=== PATIENT | female | born 1955 | race Caucasian/White ===

== ENCOUNTER 2017-01-02 07:38 | Day surgery (SDC) | payer OTHER ==
[~2017-01-02 07:38] MED LIST: Buffered Lidocaine 1% SYR 3ML* 3 ML/SYR SYRINGE INTRADERM ONE
[2017-01-02] MEDS ORDERED: fentaNYL* 50 MCG/ML 2 ML VIAL (100 MCG VIAL) ONE (09:18)
[2017-01-02] MEDS ORDERED: Midazolam* 1 MG/ML 5 ML VIAL (5 MG) ONE (09:19)
[2017-01-02] MEDS ORDERED: Lidocain 1% EPI 1:100,000 * 30 ML MDV ONE (09:32)
[2017-01-02] MEDS ORDERED: Propofol* 10 MG/ML 20 ML BTL IV PUSH ONE (09:53)
[2017-01-02] MEDS ORDERED: BSS OPTH.SOL* BTL ONE (10:04)
[2017-01-02] MEDS ORDERED: Ondansetron INJ* 2 MG/ML VIAL IV PRN (10:10)
[2017-01-02 12:03] VITALS: BP 114/74
== END 2017-01-02 12:17 | disposition home or self-care (01) ==
LOC: OR 07:38
PROVIDERS: ATTEND Plastic Surgery
DX: C44.311 Basal cell carcinoma of skin of nose (principal); I10 Essential (primary) hypertension; F17.210 Nicotine dependence, cigarettes, uncomplicated
CPT/HCPCS: 88305; 88331; 88332; A9270-GY; J2250; J2704; J3010

== ENCOUNTER 2018-02-01 11:54 | Emergency (ER) | payer OTHER ==
[2018-02-01] MEDS ORDERED: Ondansetron INJ* 2 MG/ML VIAL IV ONE (12:03)
[2018-02-01] MEDS ORDERED: Ketorolac INJ* 30 MG/ML 1 ML VIAL IV ONE (12:03)
[2018-02-01] MEDS ORDERED: NS 0.9% 1000 ML* 1,000 ML IV ONE (12:03)
[2018-02-01 13:03] LABS: ABS Basophils 0 10^3/ul (0-0.2); ABS Eosinophils 0.1 10^3/ul (0-0.6); ABS Lymphocytes 0.9 10^3/ul (1.0-4.8); ABS Monocytes 0.4 10^3/ul (0-0.8); ABS Neutrophils 3.8 10^3/ul (1.5-7.7); ABS Nucleated RBC 0 10^3/ul; Eosinophil % 2.7 % (0-6); Hematocrit 37 % (35-47); Hemoglobin 12.6 g/dl (12.0-16.0); Lymphocyte % 16.6 % (25-47); Mean Corpuscular HGB Conc 34 g/dl (31-36); Mean Corpuscular Hemoglobin 31 pg (27-31); Mean Corpuscular Volume 92 fL (80-97); Mean Platelet Volume 7.2 um3 (7.4-10.4); Nucleated Red Blood Cells % 0; Platelet Count 191 10^3/ul (150-450); Red Blood Count 4.07 10^6/ul (4.0-5.4); Red Cell Distribution Width 14 % (10.5-15); White Blood Count 5.3 10^3/ul (3.5-10.8)
[2018-02-01 13:25] LABS: EGFR Non-African American 68.9 (>60)
[2018-02-01] MEDS ORDERED: Iohexol 300* (CONTRAST) 10 ML SDV IV ONE (13:50)
--- NOTE | 2018-02-01 14:56 | RAD ---
CLINICAL HISTORY: Abdominal pain COMPARISON: None TECHNIQUE: Multiple contiguous axial CT scans were obtained of the abdomen and pelvis after the administration of intravenous contrast. Coronal and sagittal multiplanar reformations are submitted for review. Oral contrast was administered. Delayed images were obtained through the abdomen and pelvis. FINDINGS: LUNG BASES: The lung bases are clear. LIVER: The liver is diffusely low in attenuation compared to the spleen. There are no focal hepatic parenchymal masses. BILE DUCTS: There is no intrahepatic or extrahepatic biliary dilatation. GALLBLADDER: The gallbladder is normal, without pericholecystic inflammatory change. PANCREAS: The pancreas is normal, without mass or ductal dilatation. SPLEEN: Normal in size and appearance. UPPER GI TRACT: Evaluation of the gastrointestinal tract is limited by incomplete gastric distention. The upper GI tract is unremarkable. SMALL BOWEL AND MESENTERY: The small bowel is normal in contour, course, and caliber. There is no obstruction or dilatation. COLON: There are multiple diverticula of the sigmoid colon. There is no pericolonic inflammatory change. Evaluation of the rectum and sigmoid distal colon is limited by streak artifact from bilateral hip prostheses. ADRENALS: Normal bilaterally. KIDNEYS: The kidneys are normal in shape, size, contour, and axis. There is no hydronephrosis or nephrolithiasis. BLADDER: Evaluation of the distal ureters and bladder is limited by streak artifact from bilateral hip prostheses. PELVIC ORGANS: Evaluation of the pelvic organs is limited by streak artifact from bilateral hip prostheses. AORTA: The aorta is normal. IVC: Unremarkable LYMPH NODES: There is no lymphadenopathy by size criteria. ABDOMINAL WALL: There is a small fat-containing umbilical hernia. BONES AND SOFT TISSUES: Degenerative changes are noted of the spine. The patient is status post bilateral hip arthroplasty. OTHER: None IMPRESSION: 1. DIVERTICULOSIS. 2. FATTY INFILTRATION OF THE LIVER. 3. EVALUATION OF THE PELVIS IS LIMITED BY STREAK ARTIFACT FROM BILATERAL HIP PROSTHESES.
[2018-02-01 15:26] VITALS: BP 131/75
--- NOTE | 2018-02-02 08:07 | ED ---
Brian Burroughs Angela, scribed for Kenny Jacobs MD on 02/01/18 at 1235 . Abdominal Pain/Female - HPI Summary HPI Summary: This pt is a 63 y/o female presenting to [facility] c/o left sided abdominal pain, worse today. Pt additionally reports diaphoresis, nausea, vomiting, and back pain. Pt rates her pain 10/10 in severity. She states she has been having diarrhea "like problems" since last summer 2016. Pt notes her diarrhea stopped last week while she was in [place]. PMHx includes HTN, IBS, GERD. - History of Current Complaint Chief Complaint: EDNauseaVomitDiarrh Stated Complaint: ILLNESS Time Seen by Provider: 02/01/18 12:00 Hx Obtained From: Patient Onset/Duration: Lasting Days, Still Present Timing: Days Severity Currently: Severe Pain Intensity: 10 Pain Scale Used: 0-10 Numeric Location: Other - left sided abd pain Radiates: No Aggravating Factor(s): Nothing Alleviating Factor(s): Nothing Associated Signs and Symptoms: Positive: Diaphoresis, Back Pain, Nausea, Vomiting. Negative: Fever, Diarrhea Allergies/Adverse Reactions: Allergies Allergy/AdvReac Type Severity Reaction Status Date / Time No Known Allergies Allergy Verified 01/02/17 08:24 Home Medications: Home Medications BuPROPion XL* [Bupropion XL*] 300 mg PO DAILY 02/01/18 [History Confirmed ] PMH/Surg Hx/FS Hx/Imm Hx Endocrine/Hematology History: Denies: Hx Diabetes, Hx Thyroid Disease Cardiovascular History: Reports: Hx Hypertension Denies: Hx Pacemaker/ICD Respiratory History: Reports: Hx Sleep Apnea Denies: Hx Asthma, Hx Chronic Obstructive Pulmonary Disease (COPD) GI History: Reports: Hx Gastroesophageal Reflux Disease - omeprazole very rare, Hx Irritable Bowel - comes and goes Denies: Hx Ulcer History: Denies: Hx Renal Disease Musculoskeletal History: Reports: Hx Arthritis Sensory History: Reports: Hx Contacts or Glasses - glasses Denies: Hx Hearing Aid Opthamlomology History: Reports: Hx Contacts or Glasses - glasses Neurological History: Reports: Hx Headaches Psychiatric History: Reports: Hx Anxiety, Hx Depression Denies: Hx Eating Disorder, Hx Panic Disorder, Hx of Violent Episodes Against Others - Cancer History Hx Chemotherapy: No Hx Radiation Therapy: No - Surgical History Surgery Procedure, Year, and Place: RIGHT HIP REPLACEMENT 2012, 2 C-SECTIONS 1997, 2000, MULTIPLE SURGERIES FOR INFERTILITY, WISDOM TEETH EXTRACTION, CYSTS REMOVED FROM BEHIND EARS-. 01/26/2016 LEFT HIP REPLACEMENTS, hysteroscopy, laparoscopy Hx Anesthesia Reactions: No Infectious Disease History: No Infectious Disease History: Reports: Hx Shingles Denies: Hx Clostridium Difficile, Hx Hepatitis, Hx Human Immunodeficiency Virus (HIV), Hx of Known/Suspected MRSA, Hx Tuberculosis, Hx Known/Suspected VRE , Hx Known/Suspected VRSA, History Other Infectious Disease, Traveled Outside the [place] in Last 30 Days - Family History Known Family History: Negative: Cardiac Disease Family History: Father: skin CA. grandfather: stroke - Social History Alcohol Use: Daily Alcohol Amount: 2 DRINKS/DAY Substance Use Type: Reports: Marijuana Substance Use Comment - Amount & Last Used: occassionally Smoking Status (MU): Light Every Day Tobacco Smoker Type: Cigarettes Amount Used/How Often: 5-6 CIG/DAY Length of Time of Smoking/Using Tobacco: 40+ years Review of Systems Positive: Skin Diaphoresis. Negative: Fever, Chills ENT: Negative Cardiovascular: Negative Positive: Abdominal Pain, Vomiting, Nausea. Negative: Diarrhea Musculoskeletal: Other - back pain Skin: Negative Neurological: Negative All Other Systems Reviewed And Are Negative: Yes Physical Exam - Summary Physical Exam Summary: VITAL SIGNS: Reviewed. GENERAL: Patient is a well-developed and nourished female who is lying comfortable in the stretcher. Patient is not in any acute respiratory distress. HEAD AND FACE: Normocephalic and atraumatic. EYES: PERRLA, EOMI x 2, No injected conjunctiva. EARS: Hearing grossly intact. Ear canals and tympanic membranes are WNL. MOUTH: Oropharynx within normal limits. NECK: Supple, trachea is midline, no adenopathy, no JVD. CHEST: Symmetric, no tenderness at palpation LUNGS: Clear to auscultation bilaterally. No wheezing or crackles. CVS: RRR, S1 and S2 present, no murmurs or gallops appreciated. ABDOMEN: Soft. Left upper quadrant and left lower quadrant tenderness. No signs of distention. Positive bowel sounds. No rebound no guarding, and no masses palpated. No abdominal bruit or pulsations. EXTREMITIES: FROM in all major joints, no edema, no cyanosis or clubbing. NEURO: Alert and oriented x 3. No acute neurological deficits. Speech is normal. SKIN: Dry and warm Triage Information Reviewed: Yes Vital Signs On Initial Exam: Initial Vitals Temp Pulse Resp BP Pulse Ox 96.6 F 59 18 146/77 100 02/01/18 12:05 02/01/18 12:05 02/01/18 12:05 02/01/18 12:05 02/01/18 12:05 Vital Signs Reviewed: Yes Diagnostics - Vital Signs Vital Signs Temp Pulse Resp BP Pulse Ox 02/01/18 12:05 96.6 F 59 18 146/77 100 - Laboratory Result Diagrams: 02/01/18 12:48 02/01/18 12:48 Lab Statement: Any lab studies that have been ordered have been reviewed, and results considered in the medical decision making process. - CT Abdomen/Pelvis CT CT Interpretation: No Acute Changes - IMPRESSION: 1. Diverticulosis. 2. Fatty infiltration of the liver. 3. Evaluation of the pelvis is limited by streak artifact from bilateral hip prostheses. Dr. Jacobs has reviewed this radiology report. CT Interpretation Completed By: Radiologist - EKG 12:16 Cardiac Rate: Bradycardia EKG Rhythm: Sinus Bradycardia - at 52 bpm EKG Interpretation: No ST elevations. Re-Evaluation - Re-Evaluation First Eval Re-Evaluation Time: 15:00 Comment: I reviewed the lab and CT results with the pt. Pt will be discharged home. Abdominal Pain Fem Course/Dx - Course Course Of Treatment: This pt is a 63 y/o female presenting to [facility] c/o left sided abdominal pain, worse today. Pt additionally reports diaphoresis, nausea, vomiting, and back pain. Pt rates her pain 10/10 in severity. She states she has been having diarrhea "like problems" since last summer 2016. Pt notes her diarrhea stopped last week while she was in [place]. PMHx includes HTN, IBS , GERD. Test results without any significant abnormalities except for glucose of 111. Abdomen/Pelvis CT shows 1. Diverticulosis. 2. Fatty infiltration of the liver. 3. Evaluation of the pelvis is limited by streak artifact from bilateral hip prostheses. In the ED course the pt was given IV fluids, Toradol for the pain and Zofran for the nausea and vomiting. After these medications, the pts pain resolved. She is eating and drinking without any nausea or vomiting. Therefore she will be discharged to home with follow up from her PCP. I discussed all the findings and test results with the patient. All questions were answered to patient satisfaction. There were no further complaints or concerns. Pt was given prescriptions for naproxen and Zofran. She is instructed to return to the ED for any worsening or new symptoms. Pt is hemodynamically stable, alert and oriented x3. - Diagnoses Provider Diagnoses: Diffuse abdominal pain, Nausea and vomiting Discharge - Sign-Out/Discharge Documenting (check all that apply): Discharge - discharge to home - Discharge Plan Condition: Stable Disposition: HOME Prescriptions: Naproxen 500 mg PO BID PRN #20 tablet PRN Reason: Pain Ondansetron TAB* [Zofran 4 MG Tab*] 4 mg PO Q6H PRN #10 tab PRN Reason: Nausea Patient Education Materials: Acute Nausea and Vomiting (ED), Abdominal Pain (ED ) Referrals: Salud Sapp MD [Primary Care Provider] - 3 Days Additional Instructions: Please follow up with your primary care provider. RETURN TO THE ED FOR ANY NEW OR WORSENING SYMPTOMS. The documentation as recorded by the Brian ellis Angela accurately reflects the service I personally performed and the decisions made by me, Kenny Jacobs MD.
== END 2018-02-01 15:26 | disposition home or self-care (01) ==
LOC: ED 11:54
DX: R10.84 Generalized abdominal pain (principal); R11.2 Nausea with vomiting, unspecified; R61 Generalized hyperhidrosis; M54.9 Dorsalgia, unspecified; K57.30 Diverticulosis of large intestine without perforation or abscess without bleeding; K76.0 Fatty (change of) liver, not elsewhere classified; R00.1 Bradycardia, unspecified; I10 Essential (primary) hypertension; K21.9 Gastro-esophageal reflux disease without esophagitis; R51 Headache; F41.9 Anxiety disorder, unspecified; F32.9 Major depressive disorder, single episode, unspecified; Z96.642 Presence of left artificial hip joint; F17.210 Nicotine dependence, cigarettes, uncomplicated
CPT/HCPCS: 36415; 74177; 80053; 82550; 83690; 83735; 83880; 85025; 86140; 93005; 96361; 96374; 96375; 99284; J1885; J2405; Q9967

== ENCOUNTER 2019-04-03 14:38 | Observation (INO) | payer OTHER ==
--- OUTSIDE RECORDS SUMMARY | 2019-04-03 14:54 | XMS REPORT | Continuity of Care Document ---
:1955 External Reference #:[id number] Author Name Gissell Askew Care Team Providers Name Role Phone Salud Sapp MD Primary Care Physician Unavailable Payers Date Identification Numbers Payment Provider Subscriber Effective: 2015 Policy Number: [id number] [employer] peng Clouder PayID: [id number] [address] [place] [address] Effective: 2015 Policy Number: [id number] [employer] Timoteo Villanueva Expires: 2015 PayID: [id number] [address] [place] [address] Effective: 2014 Policy Number: [id number] GEORGE Cailin Villanueva Expires: 2015 PayID: [id number] [address] [address] [place] [address] Effective: 2013 Policy Number: [id number] [facility] [place] Expires: 2014 [address] [place] [address] Effective: 2012 Policy Number: [id number] [employer] Timoteo Villanueva Expires: 2013 Group Number: [id number] [address] Group Name: [place] [address] PayID: [id number] Problems Active Problems Provider Date Essential hypertension Meri Golden NBrian. Onset: 09/03/2015 Anxiety state Nelsy Pérez M.D., FACP Onset: 09/28/2010 Depressive disorder Nelsy Pérez M.D., FACP Onset: 09/28/2010 Chronic fatigue syndrome Nelsy Pérez M.D., FACP Onset: 09/28/2010 Temporomandibular joint disorder Nelsy Pérez M.D., FACP Onset: 10/12/2010 Gastroesophageal reflux disease Meri Golden N.P. Onset: 06/24/2012 Obstructive sleep apnea of adult Lee Ann Weeks DNP, GURPREET, Onset: 10/16/2014 [facility] Abnormal results function studies of Jazmine Abreu MD Onset: 11/17/2015 central nervous system Postconcussion syndrome Jazmine Abreu MD Onset: 11/28/2016 Headache Jazmine Abreu MD Onset: 09/25/2017 Collagenous colitis Meri Golden N.P. Onset: 02/06/2019 Dizziness and giddiness Rajat Rojas M.D. Onset: 02/21/2019 Family History Date Family Member(s) Observation Comments Father Benign Prostatic Hypertrophy Mild Stroke (85) Mother Hypertension First Brother Mitral Valve Repair (55) Social History Type Date Description Comments Sex Unknown Marital Status Occupation Artist ETOH Use Currently consumes 3 beers per day alcohol Tobacco Use Start: Unknown Patient is a current 2 - 3 cigarettes per smoker, smokes every day day Recreational Drug Use Current Drug User Smokes marijuana 3 - 4 times weekly Smoking Status Reviewed: 03/17/19 Patient is a current 2 - 3 cigarettes per smoker, smokes every day day Exercise Type/Frequency Does not exercise Allergies, Adverse Reactions, Alerts Active Allergies Reaction Severity Comments Date No Known Drug Allergy 07/07/2010 Medications Active Medications SIG Qnty Indications Ordering Date Provider Tizanidine HCL 1 by mouth 30caps M54.2 Salud 03/17/2019 2mg Capsules every 8 h. february Emeka Sapp increase to 1-2 by mouth every 8h after a few days if needed Wellbutrin XL 300MG TB24 Take One 30units R10.12 Meri Golden, 05/19/2018 Tablet By N.P. Mouth Once Daily Levocetirizine 1 by mouth 30tabs J30.9 Salud 04/12/2018 Dihydrochloride once daily as Emeka Sapp 5mg Tablets needed Fluoxetine HCL Take One 30tabs F33.9 Meri Chico, 03/11/2018 60mg Tablets Tablet By N.P. Mouth Once Daily Nasonex instill 1 17units Salud 01/10/2016 50mcg/Act Suspension spray into Emeka Sapp each nostril once daily as needed Flovent HFA 2 puffs twice 12gm Salud 01/10/2016 110mcg/Act Aerosol daily as Kasey SappD. needed Proair HFA inhale 2 puffs 8.500gm 995.3 Salud 03/30/2015 108(90Base) mcg/Act by mouth every Emeka Sapp Aerosol 4 hours as needed Alprazolam dissolve 1 30tabs F32.9 Meri [place], 04/08/2014 0.25mg Tablets Dispers tablet on N.P. tongue upto 3 times a day as needed for anxiety max of 3 per day Hydrochlorothiazide Take One 90tabs Meri Golden, 04/11/2013 25mg Tablets Tablet By N.P. Mouth Once Daily Omeprazole take two 90caps Meri Golden, 06/15/[address] capsules by N.P. mouth once daily Budesonide take 3 daily Unknown 3mg Caps DR Part for two weeks, then 2 daily for i week, then 1 daily for one week Magnesium 27 1 by mouth per Unknown 500(27Mg) mg Tablets day History Medications Wellbutrin XL 1 by mouth 30tabs R10.12 Meri Golden, 09/11/2017 - 300mg every day N.P. 05/19/2018 Tablets ER 24HR Propranolol HCL 1 by mouth 120tabs Jazmine Abreu MD 04/11/2017 - 20mg twice a day x 1 09/11/2017 Tablets week then increase to 2 po qam and 1 po qpm x 1 week then increase to 2 po q am and 2 po qpm Wellbutrin XL 1 by mouth 30tabs R10.12 Meri Golden, 10/20/2016 - 150mg every day N.P. 09/11/2017 Tablets ER 24HR Wellbutrin XL 1 by mouth 30tabs R10.12 Meri Golden, 09/06/2016 - 300mg every day N.P. 10/20/2016 Tablets ER 24HR Wellbutrin XL 1 by mouth 14tabs Meri Chico, 08/31/2016 - 150mg every day N.P. 09/14/2016 Tablets ER 24HR Amoxicillin/Clavulanat one tablet by 20tabs J01.00 Meri [place], 2015 - e Potassium mouth twice N.P. 06/09/2016 875-125mg daily for 10 Tablets days Cephalexin 1 by mouth 21caps L08.9 Meri Golden, 03/31/2016 - 500mg Capsules three times a N.P. 04/07/2016 day for 7 days Azithromycin 2 tabs by mouth 6tabs J20.9 Yony Simpson NP 2016 - 250mg every day x1 01/26/2016 Tablets day, 1 tab by mouth every day x 4 days Vicodin take 1 by mouth 30tabs M25.552 Meri Golden, 08/27/2015 - 5-300mg Tablets every 6 hours N.P. 12/31/2015 as needed Cyclobenzaprine HCL one by mouth hs 30tabs M25.552 Meri Golden, 2014 - 10mg prn for muscle N.P. 09/10/2015 Tablets spasms Ivermectin 5 tablets by 10tabs 133.0 Meri Golden, 06/01/2015 - 3mg Tablets mouth, repeat N.P. 06/29/2015 in 2 weeks Cetirizine HCL 1 tab po at bed 30tabs 995.3 Sabas Ambriz NP 03/30/2015 - 5mg time 06/01/2015 Tablets Wellbutrin XL 1 by mouth 30tabs Meri Golden, 04/08/2014 - 300mg every day N.P. 04/21/2016 Tablets ER 24HR Vicodin 1-2 by mouth 30tabs Meri Golden, 06/28/2012 - 5-500mg Tablets every 4-6 hours N.P. 10/15/2012 and needed for pain Cephalexin one three times 21tabs 706.2 Nelsybob Pérez, 03/07/2012 - 500mg Tablets daily for 7 M.D., FACP 03/14/2012 days Ketoconazole apply once 30gm 112.3 Nelsy Elisa, 06/01/2011 - 2% Cream daily to M.D., FACP 06/24/2012 affected area Physical Thaerapy Right shoulder, Nelsy Pérez, 03/17/2011 - right hip, and M.D., FACP 06/01/2011 back pain Nasonex apply 2 sprays 17units Sabas Ambriz NP 02/03/2011 - 50mcg/Act to each nostril 01/10/2016 Suspension twice daily Clonazepam 1 tablet twice 60tabs 300.00 Nelsy Pérez, 01/18/2011 - 0.5mg Tablets a day as needed M.D., FACP 06/24/2012 Valium 1 by mouth at 30tabs Meri Golden, 11/16/2010 - 5mg Tablets bedtime N.P. 06/01/2015 Erythomycin Ophthalmic apply to 15gm Nelsy Pérez, 11/16/2010 - affected eye M.D., FACP 02/24/2011 Oint twice daily Ibuprofen 1 po tid as 90tabs Meri Chico, 09/16/2010 - 800mg Tablets needed pain N.P. 05/30/2016 Aygestin as directed 50tabs Nelsy Pérez, 09/13/2010 - 5mg Tablets M.D., FACP 09/16/2010 Tobrex 1 gtt every 4 5ml Nelsy Pérez, 08/31/2010 - 0.3% Solution hours for 7 M.D., FACP 09/07/2010 days Folate 40 MG once daily Unknown - 02/20/2019 Citalopram take one and 45tabs Meri Golden, - Hydrobromide one-half tablet N.P. 03/11/2018 40mg Tablets by mouth every day Magnesium take one tablet Unknown - 500mg Tablets by mouth daily 09/25/2017 Meclizine HCL 1 tab by mouth Unknown - 12.5mg every 8 hours 12/31/2015 Tablets as needed Ondansetron as needed Joi Schuster, - 4mg Tablets SHARI 12/31/2015 Dispers Oxycodone-Acetaminophe Joi Schuster, - conrad MCCARTHY 12/31/2015 5-325mg Tablets Wellbutrin XL Take 1 Tablet 30tabs Meri Varn, - 150mg By Mouth Once N.P. 04/08/2014 Tablets ER 24HR Daily Xanax one by mouth up 30tabs Meri Varn, - 0.25mg Tablets to three times N.P. 07/27/2014 daily as needed for anxiety Progesterone 1 Daily For 14 Unknown - Days A Month 02/24/2011 For 2 Months Xanax one po up to 90tabs Nelsy Elisa, - 0.25mg Tablets tid as needed M.D., FACP 06/24/2012 for anxiety Citalopram 1 1/2 tablets 30tabs Nelsy Elisa, - Hydrobromide daily M.D., FACP 07/08/2010 20mg Tablets HCTZ 1 tablet daily 30units Nelsy Elisa, - 25mg. M.D., FACP 04/11/2013 Medications Administered in Office Medication SIG Qnty Indications Ordering Provider Date Depomedrol 40MG Torrey Tadeo M.D. 01/03/2010 Injection Depomedrol 20MG Torrey Tadeo M.D. 01/03/2010 Injection Immunizations CPT Code Status Date Vaccine Lot # [id number] Given 09/15/2009 Tdap - Tetanus/Diptheria/Acellular Pertussis Vital Signs Date Vital Result Comment 03/17/2019 12:03pm Height 63 inches 5'3" Weight 157.00 lb Heart Rate 84 /min BP Systolic Sitting 152 mmHg 154/100 BP Diastolic Sitting 100 mmHg 154/100 O2 % BldC Oximetry 96 % BMI (Body Mass Index) 27.8 kg/m2 02/21/2019 10:24am Height 63 inches 5'3" Weight 156.00 lb Heart Rate 78 /min BP Systolic 122 mmHg BP Diastolic 80 mmHg BMI (Body Mass Index) 27.6 kg/m2 11/26/2018 1:15pm Height 63 inches 5'3" Weight 151.25 lb Heart Rate 81 /min BP Systolic 124 mmHg BP Diastolic 79 mmHg Body Temperature 97.8 F O2 % BldC Oximetry 97 % BMI (Body Mass Index) 26.8 kg/m2 09/13/2018 1:04pm Height 63 inches 5'3" Weight 155.00 lb Heart Rate 73 /min BP Systolic 132 mmHg BP Diastolic 84 mmHg Body Temperature 97.4 F O2 % BldC Oximetry 98 % BMI (Body Mass Index) 27.5 kg/m2 05/10/2018 11:00am Heart Rate 78 /min BP Systolic 128 mmHg BP Diastolic 80 mmHg Respiratory Rate 16 /min 04/15/2018 1:29pm Weight 158.00 lb Heart Rate 87 /min BP Systolic 138 mmHg BP Diastolic 76 mmHg Body Temperature 98.4 F O2 % BldC Oximetry 98 % 04/12/2018 10:14am Weight 162.00 lb Heart Rate 73 /min BP Systolic 152 mmHg BP Diastolic 91 mmHg Body Temperature 97.4 F O2 % BldC Oximetry 99 % 03/26/2018 2:46pm Height 63 inches 5'3" Weight 162.38 lb Heart Rate 78 /min BP Systolic Sitting 124 mmHg BP Diastolic Sitting 80 mmHg BMI (Body Mass Index) 28.8 kg/m2 03/11/2018 10:18am Weight 159.25 lb Heart Rate 75 /min BP Systolic 128 mmHg BP Diastolic 76 mmHg Body Temperature 98.5 F O2 % BldC Oximetry 98 % 02/11/2018 3:34pm Weight 162.50 lb Heart Rate 86 /min BP Systolic 142 mmHg BP Diastolic 86 mmHg Body Temperature 98.8 F O2 % BldC Oximetry 97 % 09/25/2017 10:54am Height 63 inches 5'3" Weight 158.38 lb Heart Rate 76 /min BP Systolic 118 mmHg BP Diastolic 80 mmHg BMI (Body Mass Index) 28.1 kg/m2 09/11/2017 10:51am Height 63 inches 5'3" Weight 156.00 lb Heart Rate 77 /min BP Systolic Sitting 146 mmHg BP Diastolic Sitting 94 mmHg O2 % BldC Oximetry 97 % BMI (Body Mass Index) 27.6 kg/m2 07/27/2017 10:41am Weight 150.25 lb Heart Rate 70 /min BP Systolic 120 mmHg BP Diastolic 78 mmHg Body Temperature 98.8 F O2 % BldC Oximetry 97 % 06/12/2017 4:58pm Weight 155.75 lb Heart Rate 80 /min BP Systolic 120 mmHg BP Diastolic 72 mmHg Body Temperature 98.1 F O2 % BldC Oximetry 98 % 04/16/2017 1:04pm Weight 158.00 lb Heart Rate 81 /min BP Systolic 120 mmHg BP Diastolic 80 mmHg Body Temperature 98.2 F O2 % BldC Oximetry 98 % 12/05/2016 2:20pm Weight 155.00 lb Heart Rate 76 /min BP Systolic 124 mmHg BP Diastolic 78 mmHg Body Temperature 98.4 F O2 % BldC Oximetry 98 % 11/28/2016 11:42am Height 62.75 inches 5'2.75" Weight 150.00 lb Heart Rate 68 /min BP Systolic Sitting 118 mmHg BP Diastolic Sitting 86 mmHg Respiratory Rate 14 /min BMI (Body Mass Index) 26.8 kg/m2 09/06/2016 10:48am Height 62.75 inches 5'2.75" Weight 155.00 lb Heart Rate 66 /min BP Systolic Sitting 149 mmHg BP Diastolic Sitting 90 mmHg Respiratory Rate 16 /min O2 % BldC Oximetry 99 % BMI (Body Mass Index) 27.7 kg/m2 07/11/2016 1:34pm Weight 158.38 lb Heart Rate 72 /min BP Systolic Sitting 138 mmHg BP Diastolic Sitting 84 mmHg Respiratory Rate 18 /min O2 % BldC Oximetry 96 % 05/30/2016 9:05am Weight 159.00 lb with shoes Heart Rate 95 /min BP Systolic Sitting 168 mmHg BP Diastolic Sitting 110 mmHg Body Temperature 97.9 F O2 % BldC Oximetry 98 % 03/31/2016 11:42am Weight 166.00 lb Heart Rate 94 /min BP Systolic Sitting 142 mmHg BP Diastolic Sitting 82 mmHg Body Temperature 97.6 F O2 % BldC Oximetry 98 % 2016 9:47am Height 62.5 inches 5'2.50" Weight 167.00 lb Heart Rate 70 /min BP Systolic Sitting 128 mmHg BP Diastolic Sitting 84 mmHg Respiratory Rate 14 /min Body Temperature 98.5 F O2 % BldC Oximetry 98 % BMI (Body Mass Index) 30.1 kg/m2 12/31/2015 8:39am Height 62.5 inches 5'2.50" Weight 169.25 lb Heart Rate 73 /min BP Systolic Sitting 118 mmHg BP Diastolic Sitting 74 mmHg Body Temperature 97.8 F Pain Level 1 O2 % BldC Oximetry 98 % BMI (Body Mass Index) 30.5 kg/m2 11/17/2015 10:41am Height 63 inches 5'3" Weight 170.00 lb Heart Rate 80 /min BP Systolic Sitting 144 mmHg BP Diastolic Sitting 76 mmHg Respiratory Rate 16 /min BMI (Body Mass Index) 30.1 kg/m2 09/27/2015 11:55am Weight 172.75 lb Heart Rate 71 /min BP Systolic Sitting 140 mmHg BP Diastolic Sitting 93 mmHg Body Temperature 97.7 F O2 % BldC Oximetry 98 % 09/21/2015 9:34am Height 62.75 inches 5'2.75" Weight 173.00 lb Heart Rate 76 /min BP Systolic Sitting 132 mmHg BP Diastolic Sitting 86 mmHg Respiratory Rate 16 /min BMI (Body Mass Index) 30.9 kg/m2 09/03/2015 10:48am Height 62.75 inches 5'2.75" Weight 169.50 lb Heart Rate 74 /min BP Systolic Sitting 131 mmHg BP Diastolic Sitting 84 mmHg Body Temperature 98.4 F BMI (Body Mass Index) 30.3 kg/m2 08/27/2015 1:28pm Height 63 inches 5'3" Weight 169.00 lb Heart Rate 82 /min BP Systolic Sitting 128 mmHg BP Diastolic Sitting 84 mmHg Respiratory Rate 14 /min Body Temperature 98.0 F O2 % BldC Oximetry 97 % BMI (Body Mass Index) 29.9 kg/m2 06/01/2015 9:07am Height 63 inches 5'3" Weight 170.00 lb Heart Rate 70 /min BP Systolic 137 mmHg BP Diastolic 84 mmHg Body Temperature 96.9 F BMI (Body Mass Index) 30.1 kg/m2 03/30/2015 1:09pm Height 63 inches 5'3" Weight 172.00 lb Heart Rate 73 /min BP Systolic Sitting 132 mmHg BP Diastolic Sitting 90 mmHg Respiratory Rate 18 /min Body Temperature 98.5 F O2 % BldC Oximetry 95 % BMI (Body Mass Index) 30.5 kg/m2 10/16/2014 10:02am Height 63 inches 5'3" Weight 166.38 lb Heart Rate 71 /min BP Systolic Sitting 134 mmHg BP Diastolic Sitting 84 mmHg Respiratory Rate 18 /min Body Temperature 98.0 F O2 % BldC Oximetry 98 % BMI (Body Mass Index) 29.5 kg/m2 Neck Circumference in inches 14.25 10/07/2014 1:27pm Weight 167.00 lb Heart Rate 84 /min BP Systolic Sitting 140 mmHg BP Diastolic Sitting 90 mmHg Body Temperature 98.0 F 08/06/2014 2:43pm Height 63 inches 5'3" Weight 167.00 lb Heart Rate 84 /min BP Systolic Sitting 144 mmHg LA reg cuff BP Diastolic Sitting 94 mmHg LA reg cuff Respiratory Rate 14 /min Body Temperature 99.8 F O2 % BldC Oximetry 97 % BMI (Body Mass Index) 29.6 kg/m2 Neck Circumference in inches 15 07/27/2014 1:47pm Height 63 inches 5'3" Weight 167.00 lb Heart Rate 72 /min BP Systolic Sitting 126 mmHg BP Diastolic Sitting 78 mmHg Body Temperature 97.4 F BMI (Body Mass Index) 29.6 kg/m2 04/08/2014 10:52am Height 63.5 inches 5'3.50" Weight 167.00 lb Heart Rate 82 /min BP Systolic Sitting 138 mmHg BP Diastolic Sitting 100 mmHg BMI (Body Mass Index) 29.1 kg/m2 06/24/2013 2:05pm Weight 161.50 lb Heart Rate 82 /min BP Systolic Sitting 138 mmHg BP Diastolic Sitting 82 mmHg 05/30/2013 1:14pm Weight 158.75 lb Heart Rate 80 /min BP Systolic Sitting 130 mmHg BP Diastolic Sitting 80 mmHg 03/06/2013 1:07pm Weight 159.00 lb Heart Rate 70 /min BP Systolic Sitting 122 mmHg BP Diastolic Sitting 80 mmHg 10/15/2012 10:41am Height 64.5 inches 5'4.50" Weight 156.00 lb Heart Rate 72 /min BP Systolic Sitting 122 mmHg BP Diastolic Sitting 78 mmHg BMI (Body Mass Index) 26.4 kg/m2 06/24/2012 3:16pm Height 64.5 inches 5'4.50" Weight 153.00 lb Heart Rate 68 /min BP Systolic Sitting 138 mmHg BP Diastolic Sitting 84 mmHg BMI (Body Mass Index) 25.9 kg/m2 03/07/2012 10:56am Height 64.5 inches 5'4.50" Weight 152.50 lb Heart Rate 76 /min BP Systolic Sitting 124 mmHg BP Diastolic Sitting 84 mmHg Body Temperature 97.9 F BMI (Body Mass Index) 25.8 kg/m2 10/13/2011 9:58am Height 64.5 inches 5'4.50" Weight 150.75 lb Heart Rate 68 /min BP Systolic Sitting 118 mmHg L BP Diastolic Sitting 72 mmHg L BMI (Body Mass Index) 25.5 kg/m2 09/26/2011 8:55am Height 64.5 inches 5'4.50" Weight 150.00 lb Heart Rate 64 /min BP Systolic Sitting 118 mmHg BP Diastolic Sitting 76 mmHg BMI (Body Mass Index) 25.3 kg/m2 08/01/2011 10:44am Height 64.5 inches 5'4.50" Weight 156.00 lb Heart Rate 64 /min BP Systolic Sitting 116 mmHg l BP Diastolic Sitting 80 mmHg l BMI (Body Mass Index) 26.4 kg/m2 06/15/2011 1:15pm Height 64.5 inches 5'4.50" Weight 159.00 lb Heart Rate 78 /min BP Systolic Sitting 142 mmHg BP Diastolic Sitting 90 mmHg O2 % BldC Oximetry 98 % BMI (Body Mass Index) 26.9 kg/m2 06/01/2011 10:34am Height 64.5 inches 5'4.50" Weight 159.00 lb Heart Rate 60 /min BP Systolic Sitting 124 mmHg BP Diastolic Sitting 78 mmHg BMI (Body Mass Index) 26.9 kg/m2 03/17/2011 8:35am Height 64.5 inches 5'4.50" Weight 161.00 lb Heart Rate 68 /min BP Systolic Sitting 126 mmHg L BP Diastolic Sitting 78 mmHg L BMI (Body Mass Index) 27.2 kg/m2 02/24/2011 8:33am Weight 160.00 lb Heart Rate 62 /min BP Systolic Sitting 124 mmHg BP Diastolic Sitting 88 mmHg 01/18/2011 11:46am Heart Rate 72 /min BP Systolic 170 mmHg Rechecked in 15 min. - 150/100 BP Diastolic 98 mmHg Rechecked in 15 min. - 150/100 Body Temperature 98.4 F 11/28/2010 1:37pm Weight 161.00 lb Heart Rate 78 /min BP Systolic 122 mmHg BP Diastolic 80 mmHg 11/16/2010 4:21pm Heart Rate 68 /min BP Systolic 130 mmHg BP Diastolic 86 mmHg Body Temperature 99.1 F 09/16/2010 8:58am Height 63.5 inches 5'3.50" Weight 160.25 lb Heart Rate 60 /min BP Systolic 130 mmHg BP Diastolic 86 mmHg Body Temperature 99.0 F BMI (Body Mass Index) 27.9 kg/m2 09/13/2010 2:46pm Weight 158.00 lb Heart Rate 80 /min BP Systolic 150 mmHg BP Diastolic 100 mmHg 08/31/2010 11:47am Heart Rate 64 /min BP Systolic 142 mmHg BP Diastolic 96 mmHg Body Temperature 98.8 F 07/08/2010 11:23am Weight 156.38 lb Heart Rate 60 /min BP Systolic 130 mmHg BP Diastolic 82 mmHg Results Test Date Facility Test Result H/L Range Note Laboratory test 02/05/2019 [facility] Surgical SEE RESULT 1 , [address] [place] [address] [phone] Laboratory test 11/26/2018 [facility] Cytology SEE RESULT [address] [place] [address] [phone] Comp Metabolic 11/15/2018 [facility] Sodium 138 mmol/L N 135- [address] [place] [address] [phone] Potassium 3.8 mmol/L N 3.5-5.0 Chloride 103 mmol/L N 101-111 Co2 Carbon Dioxide 28 mmol/L N 22-32 Anion Gap 7 mmol/L N 2-11 Glucose 96 mg/dL N 70-100 Blood Urea Nitrogen 11 mg/dL N 6-24 Creatinine 0.89 mg/dL N 0.51-0.95 BUN/Creatinine Ratio 12.4 N 8-20 Calcium 9.6 mg/dL N 8.6-10.3 Total Protein 6.6 g/dL N 6.4-8.9 Albumin 4.0 g/dL N 3.2-5.2 Globulin 2.6 g/dL N 2-4 Albumin/Globulin Ratio 1.5 N 1-3 Total Bilirubin 0.50 mg/dL N 0.2-1.0 Alkaline Phosphatase 65 U/L N 34-104 Alt 14 U/L N 7-52 Ast 17 U/L N 13-39 Egfr Non- 64.5 >60 Egfr 78.0 >60 4 Lipid Profile 11/15/2018 [facility] Triglycerides 92 mg/dL 5 (Trig/Chol/HDL) [address] [place] [address] [phone] Cholesterol 205 mg/dL 6 HDL Cholesterol 67.8 mg/dL 7 LDL Cholesterol 119 mg/dL 8 Laboratory test 11/15/2018 [facility] TSH (Thyroid 1.66 mcIU/mL N 0.34-5.[address] Stim [place]orm) [place] [address] [phone] Vitamin B12 257 pg/mL N 180-914 9 Ferritin 26.5 ng/mL N 11-307 CBC Auto Diff 11/15/2018 [facility] White Blood 5.7 10^3/uL N 3.5-10.[address] [place] [address] [phone] Red Blood Count 4.36 10^6/uL N 4.00-5.40 Hemoglobin 13.7 g/dL N 12.0-16.0 Hematocrit 40 % N 35-47 Mean Corpuscular Volume 91 fL N 80-97 Mean Corpuscular Hemoglobin 32 pg High 27-31 Mean Corpuscular HGB Conc 35 g/dL N 31-36 Red Cell Distribution Width 13 % N 10.5-15 Platelet Count 241 10^3/uL N 150-450 Mean Platelet Volume 7.3 fL Low 7.4-10.4 Abs Neutrophils 3.7 10^3/uL N 1.5-7.7 Abs Lymphocytes 1.2 10^3/uL N 1.0-4.8 Abs Monocytes 0.6 10^3/uL N 0-0.8 Abs Eosinophils 0.2 10^3/uL N 0-0.6 Abs Basophils 0.1 10^3/uL N 0-0.2 Abs Nucleated RBC 0 10^3/uL Granulocyte % 64.3 % Lymphocyte % 21.2 % Monocyte % 10.5 % Eosinophil % 3.0 % Basophil % 1.0 % Nucleated Red Blood Cells % 0.1 Manish Christopher 11/15/2018 [facility] Ebv Capsid Positive Negative Comprehensive [address] [address] [phone] Ebv Capsid Ag IgM Ab Negative Negative Manish-Christopher Nuclear Antigen Positive Negative Manish-Christopher Virus Interp See Comment 10 Laboratory test 11/15/2018 [facility] Vitamin D 42.7 ng/mL N 20-[address] Total 25(Oh) [place] [address] [phone] Lyme Disease Serology Negative Negative 11 Laboratory test 04/15/2018 [facility] TSH (Thyroid 1.67 mcIU/mL N 0.34-5.[address] Stim [place]orm) [place] [address] [phone] Anti Nuclear Antibody 0.2 U 12 CBC Auto Diff 02/01/2018 [facility] White Blood 5.3 10^3/uL N 3.5-10.[address] [place] [address] [phone] Red Blood Count 4.07 10^6/uL N 4.0-5.4 Hemoglobin 12.6 g/dL N 12.0-16.0 Hematocrit 37 % N 35-47 Mean Corpuscular Volume 92 fL N 80-97 Mean Corpuscular Hemoglobin 31 pg N 27-31 Mean Corpuscular HGB Conc 34 g/dL N 31-36 Red Cell Distribution Width 14 % N 10.5-15 Platelet Count 191 10^3/uL N 150-450 Mean Platelet Volume 7.2 um3 Low 7.4-10.4 Abs Neutrophils 3.8 10^3/uL N 1.5-7.7 Abs Lymphocytes 0.9 10^3/uL Low 1.0-4.8 Abs Monocytes 0.4 10^3/uL N 0-0.8 Abs Eosinophils 0.1 10^3/uL N 0-0.6 Abs Basophils 0 10^3/uL N 0-0.2 Abs Nucleated RBC 0 10^3/uL Granulocyte % 72.2 % N 38-83 Lymphocyte % 16.6 % Low 25-47 Monocyte % 7.6 % High 0-7 Eosinophil % 2.7 % N 0-6 Basophil % 0.9 % N 0-2 Nucleated Red Blood Cells % 0 Comp Metabolic Panel 02/01/2018 [facility] Sodium 139 mmol/L N 139-[address] [place] [address] [phone] Potassium 3.7 mmol/L N 3.5-5.0 Chloride 107 mmol/L N 101-111 Co2 Carbon Dioxide 29 mmol/L N 22-32 Anion Gap 3 mmol/L N 2-11 Glucose 111 mg/dL High 70-100 Blood Urea Nitrogen 15 mg/dL N 6-24 Creatinine 0.84 mg/dL N 0.51-0.95 BUN/Creatinine Ratio 17.9 N 8-20 Calcium 8.7 mg/dL N 8.6-10.3 Total Protein 6.1 g/dL Low 6.4-8.9 Albumin 3.9 g/dL N 3.2-5.2 Globulin 2.2 g/dL N 2-4 Albumin/Globulin Ratio 1.8 N 1-3 Total Bilirubin 0.40 mg/dL N 0.2-1.0 Alkaline Phosphatase 59 U/L N 34-104 Alt 16 U/L N 7-52 Ast 17 U/L N 13-39 Egfr Non- 68.9 >60 Egfr 88.6 >60 13 Laboratory test 02/01/2018 [facility] Magnesium 1.9 mg/dL N 1.9-2.7 [address] [place] [address] [phone] Lipase 13 U/L N 11.0-82.0 Creatine Kinase(CK) 97 U/L N 10-223 C Reactive Protein < 1.00 mg/L N < 5.00 14 B-Type Natriuretic Peptide BNP 21 pg/mL 15 Lipid Profile 09/10/2017 [facility] Triglycerides 87 mg/dL 16 (Trig/Chol/HDL) [address] [place] [address] [phone] Cholesterol 218 mg/dL 17 HDL Cholesterol 68.4 mg/dL 18 LDL Cholesterol 132 mg/dL 19 Comp Metabolic Panel 09/10/2017 [facility] Sodium 138 mmol/L N 133-145 [address] [place] [address] [phone] Potassium 4.0 mmol/L N 3.5-5.0 Chloride 103 mmol/L N 101-111 Co2 Carbon Dioxide 32 mmol/L N 22-32 Anion Gap 3 mmol/L N 2-11 Glucose 93 mg/dL N 70-100 Blood Urea Nitrogen 13 mg/dL N 6-24 Creatinine 0.83 mg/dL N 0.51-0.95 BUN/Creatinine Ratio 15.7 N 8-20 Calcium 9.5 mg/dL N 8.6-10.3 Total Protein 6.9 g/dL N 6.4-8.9 Albumin 4.2 g/dL N 3.2-5.2 Globulin 2.7 g/dL N 2-4 Albumin/Globulin Ratio 1.6 N 1-3 Total Bilirubin 0.50 mg/dL N 0.2-1.0 Alkaline Phosphatase 64 U/L N 34-104 Alt 18 U/L N 7-52 Ast 17 U/L N 13-39 Egfr Non- 70.1 >60 Egfr 90.2 >60 20 CBC Auto Diff 06/20/2017 [facility] White Blood 5.7 10^3/uL N 3.5-10.[address] [place] [address] [phone] Red Blood Count 4.53 10^6/uL N 4.0-5.4 Hemoglobin 14.2 g/dL N 12.0-16.0 Hematocrit 42 % N 35-47 Mean Corpuscular Volume 92 fL N 80-97 Mean Corpuscular Hemoglobin 31 pg N 27-31 Mean Corpuscular HGB Conc 34 g/dL N 31-36 Red Cell Distribution Width 13 % N 10.5-15 Platelet Count 258 10^3/uL N 150-450 Mean Platelet Volume 8 um3 N 7.4-10.4 Abs Neutrophils 3.1 10^3/uL N 1.5-7.7 Abs Lymphocytes 1.6 10^3/uL N 1.0-4.8 Abs Monocytes 0.6 10^3/uL N 0-0.8 Abs Eosinophils 0.3 10^3/uL N 0-0.6 Abs Basophils 0 10^3/uL N 0-0.2 Abs Nucleated RBC 0 10^3/uL N Granulocyte % 55.4 % N 38-83 Lymphocyte % 29.0 % N 25-47 Monocyte % 10.0 % High 1-9 Eosinophil % 4.7 % N 0-6 Basophil % 0.9 % N 0-2 Nucleated Red Blood Cells % 0 N Comp Metabolic Panel 06/20/2017 [facility] Sodium 138 mmol/L N 133-[address] [place] [address] [phone] Potassium 4.2 mmol/L N 3.5-5.0 Chloride 104 mmol/L N 101-111 Co2 Carbon Dioxide 29 mmol/L N 22-32 Anion Gap 5 mmol/L N 2-11 Glucose 96 mg/dL N 70-100 Blood Urea Nitrogen 13 mg/dL N 6-24 Creatinine 0.78 mg/dL N 0.51-0.95 BUN/Creatinine Ratio 16.7 N 8-20 Calcium 9.6 mg/dL N 8.6-10.3 Total Protein 6.9 g/dL N 6.4-8.9 Albumin 4.2 g/dL N 3.2-5.2 Globulin 2.7 g/dL N 2-4 Albumin/Globulin Ratio 1.6 N 1-3 Total Bilirubin 0.60 mg/dL N 0.2-1.0 Alkaline Phosphatase 66 U/L N 34-104 Alt 11 U/L N 7-52 Ast 17 U/L N 13-39 Egfr Non- 75.3 N >60 Egfr 96.9 N >60 21 Manish Christopher 06/20/2017 [facility] Ebv Capsid Positive N Negative Comprehensive [address] [place] [address] [phone] Ebv Capsid Ag IgM Ab Negative N Negative Manish-Christopher Nuclear Antigen Positive N Negative Manish-Christopher Virus Interp See Comment N 22 Laboratory test 06/20/2017 [facility] Lyme Disease Negative N Negative [address] [place] [address] [phone] TSH (Thyroid Stim Horm) 2.10 mcIU/mL N 0.34-5.60 Laboratory test 06/20/2017 [facility] Stool Culture SEE RESULT [address] BELOW [place], [place] [address] [phone] Laboratory test 01/02/2017 [facility] Surgical SEE RESULT [address] Pathology BELOW [place], [place] [id number] [phone] Laboratory test 09/08/2016 [facility] HPV Rna Negative N Negative [address] [place] Ww/[place] [address] Genotype [phone] Cytology SEE RESULT BELOW 27 Lipid Profile 09/05/2016 [facility] Triglycerides 67 mg/dL N 28 (Trig/Chol/HDL) [address] [place] [address] [phone] Cholesterol 181 mg/dL N 29 HDL Cholesterol 57.8 mg/dL N 30 LDL Cholesterol 110 mg/dL N 31 Comp Metabolic Panel 09/05/2016 [facility] Sodium 137 mmol/L N 133-[address] [place] [address] [phone] Potassium 4.1 mmol/L N 3.5-5.0 Chloride 103 mmol/L N 101-111 Co2 Carbon Dioxide 30 mmol/L N 22-32 Anion Gap 4 mmol/L N 2-11 Glucose 79 mg/dL N 70-100 Blood Urea Nitrogen 14 mg/dL N 6-24 Creatinine 0.81 mg/dL N 0.51-0.95 BUN/Creatinine Ratio 17.3 N 8-20 Calcium 9.4 mg/dL N 8.6-10.3 Total Protein 6.6 g/dL N 6.4-8.9 Albumin 4.2 g/dL N 3.2-5.2 Globulin 2.4 g/dL N 2-4 Albumin/Globulin Ratio 1.8 N 1-3 Total Bilirubin 0.50 mg/dL N 0.2-1.0 Alkaline Phosphatase 73 U/L N 34-104 Alt 17 U/L N 7-52 Ast 18 U/L N 13-39 Egfr Non- 72.4 N >60 Egfr 93.1 N >60 32 Comp Metabolic Panel 01/10/2016 [facility] Sodium 137 mmol/L N 133-[address] [place] [address] [phone] Potassium 4.2 mmol/L N 3.5-5.0 Chloride 104 mmol/L N 101-111 Co2 Carbon Dioxide 30 mmol/L N 22-32 Anion Gap 3 mmol/L N 2-11 Glucose 97 mg/dL N 70-100 Blood Urea Nitrogen 13 mg/dL N 6-24 Creatinine 0.93 mg/dL N 0.51-0.95 BUN/Creatinine Ratio 14.0 N 8-20 Calcium 9.6 mg/dL N 8.6-10.3 Total Protein 6.6 g/dL N 6.4-8.9 Albumin 4.2 g/dL N 3.2-5.2 Globulin 2.4 g/dL N 2-4 Albumin/Globulin Ratio 1.8 N 1-3 Total Bilirubin 0.50 mg/dL N 0.2-1.0 Alkaline Phosphatase 59 U/L N 34-104 Alt 16 U/L N 7-52 Ast 19 U/L N 13-39 Egfr Non- 61.9 N >60 Egfr 79.6 N >60 33 CBC Auto Diff 01/10/2016 [facility] White Blood 4.9 10^3/uL N 3.5-10.[address] [place] [address] [phone] Red Blood Count 4.09 10^6/uL N 4.0-5.4 Hemoglobin 12.8 g/dL N 12.0-16.0 Hematocrit 38 % N 35-47 Mean Corpuscular Volume 92 fL N 80-97 Mean Corpuscular Hemoglobin 31 pg N 27-31 Mean Corpuscular HGB Conc 34 g/dL N 31-36 Red Cell Distribution Width 13 % N 10.5-15 Platelet Count 210 10^3/uL N 150-450 Mean Platelet Volume 8 um3 N 7.4-10.4 Abs Neutrophils 2.7 10^3/uL N 1.5-7.7 Abs Lymphocytes 1.5 10^3/uL N 1.0-4.8 Abs Monocytes 0.5 10^3/uL N 0-0.8 Abs Eosinophils 0.2 10^3/uL N 0-0.6 Abs Basophils 0.1 10^3/uL N 0-0.2 Abs Nucleated RBC 0 10^3/uL N Granulocyte % 55.4 % N 38-83 Lymphocyte % 30.7 % N 25-47 Monocyte % 9.2 % High 1-9 Eosinophil % 3.6 % N 0-6 Basophil % 1.1 % N 0-2 Nucleated Red Blood Cells % 0 N Iron & Iron Binding 01/10/2016 [facility] Iron 132 g/dL N 50 -212 [address] [place] [address] [phone] Unsaturated Iron Binding 200 g/dL N Total Iron Binding Capacity 332 g/dL N 250-450 % Iron Saturation 40 % N 15-55 Laboratory test 01/10/2016 [facility] Ferritin 25.8 ng/mL N 11 -307 finding [address] [place] [address] [phone] Laboratory test 11/15/2015 [facility] TSH (Thyroid 0.99 N 0.34 -5.60 finding 101 [facility] Stim Horm) ?IU/[place] [address] [phone] Creatinine 11/15/2015 [facility] Creatinine 0.85 mg/dL N 0.51- 0.95 [address] [place] [address] [phone] Egfr Non- 68.7 N >60 Egfr 88.3 N >60 34 Laboratory test 09/03/2015 [facility] Cytology SEE RESULT BELOW 35 finding [address] [place] [address] [phone] HPV Rna Ww/Reflex Genotype POSITIVE Abnormal Negative 36 HPV 16, 18/45 09/03/2015 [facility] HPV 16 Positive Abnormal Negative Genotype [address] [place] [address] [phone] HPV 18/45 Genotype Negative N Negative Lipid Profile 08/31/2015 [facility] Triglycerides 79 mg/dL N 37 (Trig/Chol/HDL) [address] [place], [place] [id number] [phone] Cholesterol 184 mg/dL N 38 HDL Cholesterol 50.8 mg/dL N 39 LDL Cholesterol 117 mg/dL N 40 Laboratory test 08/31/2015 [facility] Glucose 95 mg/dL N 70- 100 41 finding [address] [place] [address] [phone] Urinalysis Profile 09/25/2014 [facility] Urine Color Straw [place] [address] [place] [address] [phone] Urine Appearance Clear N Urine Specific [place] 1.000 Low 1.010-1.030 Urine pH 5.0 N 5-9 Urine Urobilinogen Negative N Negative Urine Ketones Negative N Negative Urine Protein Negative N Negative Urine Leukocytes Negative N Negative Urine Blood 1+ Abnormal Negative Urine Nitrite Negative N Negative Urine Bilirubin Negative N Negative Urine Glucose 2+(150 mg/dL) Abnormal Negative Urine White Blood Cell Trace N Absent Urine Red Blood Cell Trace N Absent Urine Bacteria 1+ Abnormal Absent Urine Squamous Epithelial Cell Present Abnormal Absent Urine Drug 09/25/2014 [facility] Amphetamine Ur None Detected N None Detect SCR ED & [address] [place] [address] [phone] Barbiturates Urine Screen None Detected N None Detect Benzodiazepine Urine Screen None Detected N None Detect Urine Cannabinoids Screen None Detected N None Detect Urine Cocaine Screen None Detected N None Detect Urine Opiates Screen None Detected N None Detect Urine Phencyclidine Screen None Detected N None Detect 42 Urine Culture And 09/25/2014 [facility] Urine Culture (SEE NOTE ) [address] [place] [address] [phone] CBC Auto Diff 09/24/2014 [facility] White Blood 5.6 10^3/uL N 4.8-[address] Count .8 [place] [address] [phone] Red Blood Count 4.19 10^6/uL N 4.0-5.4 Hemoglobin 13.2 g/dL N 12.0-16.0 Hematocrit 38 % N 35-47 Mean Corpuscular Volume 92 fL N 80-97 Mean Corpuscular Hemoglobin 32 pg High 27-31 Mean Corpuscular HGB Conc 35 g/dL N 31-36 Red Cell Distribution Width 13 % N 10.5-15 Platelet Count 253 10^3/uL N 150-450 Mean Platelet Volume 8 um3 N 7.4-10.4 Abs Neutrophils 3.2 10^3/uL N 1.5-7.7 Abs Lymphocytes 1.6 10^3/uL N 1.0-4.8 Abs Monocytes 0.5 10^3/uL N 0-0.8 Abs Eosinophils 0.2 10^3/uL N 0-0.6 Abs Basophils 0 10^3/uL N 0-0.2 Abs Nucleated RBC 0.01 10^3/uL N Granulocyte % 57.2 % N 38-83 Lymphocyte % 28.7 % N 25-47 Monocyte % 9.1 % High 1-9 Eosinophil % 4.1 % N 0-6 Basophil % 0.9 % N 0-2 Nucleated Red Blood Cells % 0.1 N Comp Metabolic Panel 09/24/2014 [facility] Sodium 139 mmol/L N 133-[address] [place] [address] [phone] Potassium 3.5 mmol/L N 3.5-5.0 44 Chloride 105 mmol/L N 101-111 Co2 Carbon Dioxide 26 mmol/L N 22-32 Anion Gap 8 mmol/L N 2-11 Glucose 59 mg/dL Low 70-100 Blood Urea Nitrogen 12 mg/dL N 6-24 Creatinine 0.91 mg/dL N 0.51-0.95 BUN/Creatinine Ratio 13.2 N 8-20 Calcium 9.5 mg/dL N 8.6-10.3 Total Protein 7.2 g/dL N 6.4-8.9 Albumin 4.3 g/dL N 3.2-5.2 Globulin 2.9 g/dL N 2-4 Albumin/Globulin Ratio 1.5 N 1-3 Total Bilirubin 0.30 mg/dL N 0.2-1.0 Alkaline Phosphatase 62 U/L N 34-104 Alt 15 U/L N 7-52 Ast 18 U/L N 13-39 Egfr Non- 63.7 N >60 Egfr 81.9 N >60 45 Laboratory test 09/24/2014 [facility] Acetaminophen < 15 g/mL N [address] [place] [address] [phone] Alcohol 129 mg/dL High <10 Salicylate < 2.50 mg/dL N <30 TSH (Thyroid Stimulating Horm) 1.36 IU/mL N 0.34-5.60 Laboratory test 07/27/2014 [facility] Cytology RUN DATE: [address] [place] [address] NOTE> [phone] HPV High Risk 07/27/2014 [facility] Human See Comment N [address] [place] [address] Source [phone] HPV High Risk Type 16, PCR Positive N Negative HPV High Risk Type 18, PCR Negative N Negative HPV Other Risk types Positive N Negative 49 Ua Routine 06/24/2013 [facility] Ua Specific [place] 1.010 Ua PH 5 Ua Color yellow Ua Appera clear Ua WBC trace Ua Protein trace Ua Glucose neg Ua Ketones neg Ua Bilirubin small Ua Urobilinogen neg Ua Nitrite neg Ua Occult Blood non hem trace Urine Culture And 06/24/2013 [facility] Urine (SEE NOTE) [address] Culture [place], [place] [id number] [phone] Urine Culture And 05/03/2013 [facility] Urine (SEE NOTE) [address] Culture [place], [place] [address] [phone] Urine Microscopic 05/03/2013 [facility] Urine WBC 1+ (<10 None Seen [address] /hpf) [place], [place] [id number] [phone] Urine RBC None Seen None Seen Urine Epithelial Cells 3+ Squamous /hpf None Seen Bacteria Urine 1+ None Seen Urinalysis 05/03/2013 [facility] Urine Color Yellow [address] [place] [address] [phone] Urine Appearance Clear Urine Specific [place] 1.018 1.010-1.030 Urine Esterase 1+ Abnormal Negative Urine Nitrate Negative Negative Urine Urobilinogen Negative E.U./dL Negative Urine Protein Negative mg/dL Negative Urine pH 5.5 5-9 Urine Blood Negative Negative Urine Ketones Negative mg/dL Negative Urine Bilirubin Negative Negative Urine Glucose Negative mg/dL Negative Comp Metabolic Panel 05/02/2013 [facility] Sodium 137 mmol/L 133-145 [address] [place] [address] [phone] Potassium 3.3 mmol/L Low 3.5-5.0 Chloride 103 mmol/L 101-111 Co2 Carbon Dioxide 23.0 mmol/L 22-32 Anion Gap 11.0 mmol/L 2-11 Glucose 93 mg/dL 70-100 Blood Urea Nitrogen 17 mg/dL 6-24 Creatinine 1.10 mg/dL 0.50-1.40 BUN/Creatinine Ratio 15.5 8-20 Calcium 9.3 mg/dL 8.1-9.9 Total Protein 7.3 g/dL 6.2-8.1 Albumin 4.1 g/dL 3.6-5.4 Globulin 3.2 g/dL 2-4 Albumin/Globulin Ratio 1.3 1-3 Total Bilirubin 0.8 mg/dL 0.4-1.5 Alkaline Phosphatase 64 U/L 30-110 Alt 15 U/L 14-54 Ast 22 U/L 12-42 Egfr Non- 51.4 >60 Egfr 66.1 >60 52 Laboratory test 05/02/2013 [facility] Magnesium 2.1 mg/dL 1.7 -2.6 finding [address] [place] [address] [phone] Creatine Kinase 108 U/L 0-200 CKMB 05/02/2013 [facility] CKMB ng/mL 2.0 ng/mL 0.3-4.0 53 [address] [place] [address] [phone] Laboratory test 05/02/2013 [facility] Troponin I 0 ng/mL 0- 0.06 54 finding [address] [place] [address] [phone] Alcohol 34.6 mg/dL High Less Than 10 55 TSH (Thyroid Stimulating Horm) 0.95 miu/mL 0.34-5.60 CBC Auto Diff 05/02/2013 [facility] White Blood 5.8 10^3/uL 4.8-10.[address] [place] [address] [phone] Red Blood Count 4.08 10^6/uL 4.0-5.4 Hemoglobin 12.6 g/dL 12.0-16.0 Hematocrit 38 % 35-47 Mean Corpuscular Volume 93 fL 80-97 Mean Corpuscular Hemoglobin 31 pg 27-31 Mean Corpuscular HGB Conc 33 g/dL 31-36 Red Cell Distribution Width 14 % 10.5-15 Platelet Count 242 10^3/uL 150-450 Mean Platelet Volume 8 um3 7.4-10.4 Abs Neutrophils 3.7 10^3/uL 1.5-7.7 Abs Lymphocytes 1.4 10^3/uL 1.0-4.8 Abs Monocytes 0.4 10^3/uL 0-0.8 Abs Eosinophils 0.2 10^3/uL 0-0.6 Abs Basophils 0 10^3/uL 0-0.2 Abs Nucleated RBC 0.01 10^3/uL Granulocyte % 63.4 % 38-83 Lymphocyte % 24.2 % Low 25-47 Monocyte % 7.7 % 1-9 Eosinophil % 3.9 % 0-6 Basophil % 0.8 % 0-2 Nucleated Red Blood Cells % 0.1 Urine Drug 05/02/2013 [facility] Amphetamine Ur None Detected None Detect SCR ED & [address] [place] [address] [phone] Barbiturates Urine Screen None Detected None Detect Benzodiazepine Urine Screen None Detected None Detect Urine Cannabinoids Screen Positive None Detect Urine Cocaine Screen None Detected None Detect Urine Opiates Screen None Detected None Detect Urine Phencyclidine Screen None Detected None Detect 56 Laboratory test 05/02/2013 [facility] Serum Negative Negative [address] [place] [address] [phone] B Type Natriuretic Peptide 17.0 pg/mL 0-100 Rapid Influenza A 10/29/2012 [facility] Rapid Influenza (SEE NOTE) [address] [place] [address] [phone] Ua Routine 10/15/2012 [facility] Ua Specific 1.015 [place] Ua PH 6 Ua Color yellow Ua Appera clear Ua WBC neg Ua Protein neg Ua Glucose neg Ua Ketones neg Ua Bilirubin neg Ua Urobilinogen neg Ua Nitrite neg Ua Occult Blood non hemo trace Laboratory test 10/15/2012 [facility] Cytology RUN DATE: finding [address] <SEE NOTE> [place] [address] [phone] Laboratory test 09/26/2011 [facility] Cytology [address] <SEE NOTE> [place] [address] [phone] 1 [id number] 2 SEE RESULT BELOW Name: RICHBERHANE : [address]: Popeye Church DO Acct: [id number] Unit: [id number] AGE: 64 Location: [facility] Re02/05/19 SEX: F Status: DEP REF SPEC: [id number] PATTIE: 02/05/19-[address] [facility] [address]: Popeye Church DO REQ: [id number] RECD: 02/05/19 STATUS: EVELIA WOO DR: Meri Golden PIECER UP _ ORDERED: LEVEL 4 COMMENTS: [id number] FINAL DIAGNOSIS Colon, random, biopsy: -- Collagenous colitis. CLINICAL HISTORY Gastroesophageal reflux disease; diarrhea POST-OPERATIVE DIAGNOSIS EGD: esophagus - 1 cm variable; gastric - active blood; duodenum - normal; conclusions: colonoscopy: to cecum; tortuous; good prep; biopsy microscopic; internal hemorrhoid; left diverticulosis coli GROSS DESCRIPTION The specimen is received in formalin labeled, Random Colon Biopsies, and consists of a 0.7 x 0.6 x 0.1 cm aggregate of loredo-pink irregular soft tissue fragments which is submitted entirely in one cassette. Signed by and Reported on: Sharon Harvey MD 02/06/19 1242 END OF REPORT DEPARTMENT OF PATHOLOGY, [address] [place] [address] Nathan Negro M.D. Director [facility] # [id number] 3 SEE RESULT BELOW Name: BERHANE VILLANUEVA : [address]: Meri Golden NP Acct: [id number] Unit: [id number] AGE: 63 Location: [facility] Re11/26/18 SEX: F Status: REG REF SPEC: [id number] PATTIE: 11/26/18-[address] [facility] [address]: Meri Golden NP REQ: [id number] RECD: 11/26/18 STATUS: SOUT _ ORDERED: TP IMAGE ANALYS, HPV/Thin Prep, HPV 16/18 GENE COMMENTS: [id number] Negative for Intraepithelial lesion or Malignancy Date Time Test Result Flag (u) Normal Range 11/26/18 1420 @ HPV RNA RFLX GE Negative Negative @ @ The high-risk HPV types detected by the assay include: 16, @ 18, 31, 33, 35, 39, 45, 51, 52, 56, 58, 59, 66, and 68. A. Ectocervical/Endocervical Specimen Adequacy: Satisfactory of evaluation Transformation zone component identified Patient Information: HPV: High risk HPV RNA testing regardless of pap results. HPV 16/18 Genotype Reflex Actual Specimen Date: 11/26/18 LMP If Unknown: age 55 Spec Date if unknown: 08/2016 ?: N Post Menopausal?: Y Hysterectomy?: N Previous Abnormal Pap Smears?:Y If Yes, enter Diagnosis: previous history of HPV Signed by and Reported on: JEREMY Robles(ASCP) 1400 This Pap test was evaluated with the assistance of the delicious Test Imaging System. Due to cytologic findings at the consultant intern microscope, comprehensive manual rescreening by a Airveyor Operator may be required. The Pap Smear is a screening test designed to aid in the detection of premalignant and malignant conditions of the uterine cervix. It is not a diagnostic procedure and should not be used as the sole means of detecting cervical cancer. Both false- positive and false- negative reports do occur. Depending on your risk status, a Pap smear should be obtained and evaluated every 1-3 years. END OF REPORT DEPARTMENT OF PATHOLOGY, [address] [place] [address] Nathan Negro M.D. Director [facility] # [id number] 4 Because ethnic data is not always readily available, this report includes an eGFR for both -Americans and non- Americans. The National Kidney Disease Education Program (NKDEP) does not endorse the use of the MDRD equation for patients that are not between the ages of 18 and 70, are , have extremes of body size, muscle mass, or nutritional status, or are non- or non-. According to the National Kidney Foundation, irrespective of diagnosis, the stage of the disease is based on the level of kidney function: Stage Description GFR(mL/min/1.73 m(2)) 1 Kidney damage with normal or decreased GFR 90 2 Kidney damage with mild decrease in GFR 60-89 3 Moderate decrease in GFR 30-59 4 Severe decrease in GFR 15-29 5 Kidney failure <15 (or dialysis) 5 Desirable: <150 Borderline High: 150-199 High: 200-499 Very High: >500 6 Desirable: <200 Borderline High: 200-239 High: >239 7 Low: <40 Desirable: 40-60 High: >60 8 Desirable: <100 Near Optimal: 100-129 Borderline High: 130-159 High: 160-189 Very High: >189 9 Normal Range 180 to 914 Indeterminate Range 145 to 180 Deficient Range <145 10 RESULT: Results suggest past infection. ADDITIONAL INFORMATION In most populations, at least 90% of the adult population will have been infected with EBV sometime in the past and therefore, will be positive for anti-VCA/IgG and anti- EBNA. Antibodies to EBNA develop 6-8 weeks after primary infection and remain present for life. Presence of VCA/ IgM antibodies indicates recent primary infection with EBV. Test Performed by: [place] [address] 11 No evidence of antibodies to B. burgdorferi detected. False negative results may occur in recently infected patients (<=2 weeks) due to low or undetectable antibody levels to B. burgdorferi. If recent exposure is suspected, a second sample should be collected and tested in 2-4 weeks. Test Performed by: [facility] [place] [address] 12 REFERENCE VALUE <=1.0 (Negative) Test Performed by: [address] [address] 13 Because ethnic data is not always readily available, this report includes an eGFR for both -Americans and non- Americans. The National Kidney Disease Education Program (NKDEP) does not endorse the use of the MDRD equation for patients that are not between the ages of 18 and 70, are , have extremes of body size, muscle mass, or nutritional status, or are non- or non-. According to the National Kidney Foundation, irrespective of diagnosis, the stage of the disease is based on the level of kidney function: Stage Description GFR(mL/min/1.73 m(2)) 1 Kidney damage with normal or decreased GFR 90 2 Kidney damage with mild decrease in GFR 60-89 3 Moderate decrease in GFR 30-59 4 Severe decrease in GFR 15-29 5 Kidney failure <15 (or dialysis) 14 Acute inflammation: >10.00 15 >100 to <200 pg/mL: likely compensated congestive heart failure (CHF) 200 to 400 pg/mL: likely moderate CHF >400 pg/mL: likely moderate to severe CHF 16 Desirable: <150 Borderline High: 150-199 High: 200-499 Very High: >500 17 Desirable: <200 Borderline High: 200-239 High: >239 18 Low: <40 Desirable: 40-60 High: >60 19 Desirable: <100 Near Optimal: 100-129 Borderline High: 130-159 High: 160-189 Very High: >189 20 Because ethnic data is not always readily available, this report includes an eGFR for both -Americans and non- Americans. The National Kidney Disease Education Program (NKDEP) does not endorse the use of the MDRD equation for patients that are not between the ages of 18 and 70, are , have extremes of body size, muscle mass, or nutritional status, or are non- or non-. According to the National Kidney Foundation, irrespective of diagnosis, the stage of the disease is based on the level of kidney function: Stage Description GFR(mL/min/1.73 m(2)) 1 Kidney damage with normal or decreased GFR 90 2 Kidney damage with mild decrease in GFR 60-89 3 Moderate decrease in GFR 30-59 4 Severe decrease in GFR 15-29 5 Kidney failure <15 (or dialysis) 21 Because ethnic data is not always readily available, this report includes an eGFR for both -Americans and non- Americans. The National Kidney Disease Education Program (NKDEP) does not endorse the use of the MDRD equation for patients that are not between the ages of 18 and 70, are , have extremes of body size, muscle mass, or nutritional status, or are non- or non-. According to the National Kidney Foundation, irrespective of diagnosis, the stage of the disease is based on the level of kidney function: Stage Description GFR(mL/min/1.73 m(2)) 1 Kidney damage with normal or decreased GFR 90 2 Kidney damage with mild decrease in GFR 60-89 3 Moderate decrease in GFR 30-59 4 Severe decrease in GFR 15-29 5 Kidney failure <15 (or dialysis) 22 RESULT: Results suggest past infection. ADDITIONAL INFORMATION In most populations, at least 90% of the adult population will have been infected with EBV sometime in the past and therefore, will be positive for anti-VCA/IgG and anti- EBNA. Antibodies to EBNA develop 6-8 weeks after primary infection and remain present for life. Presence of VCA/ IgM antibodies indicates recent primary infection with EBV. Test Performed by: [facility] [place] [address] 23 Serologic response to B. burgdorferi infection is not detected, but cannot rule out early infection during which low or undetectable antibody levels to B. burgdorferi may be present. If clinically indicated, a new serum specimen should be submitted in 7-14 days. Test Performed by: [address] [address] 24 SEE RESULT BELOW Name: BERHANE VILLANUEVA : [address]: Meri Golden NP Acct: [id number] Unit: [id number] AGE: 62 Location: [facility] Re06/20/17 SEX: F Status: REG REF SPEC: [id number] PATTIE: 06/20/17-[address] [facility] [address]: Meri Golden NP REQ: [id number] RECD: 06/20/17-1026 STATUS: COMP _ SOURCE: STOOL SPDESC: ORDERED: Stool Culture, O P: Giar/Slim COMMENTS: [id number] Procedure Result Reported Site Stool Culture Final 06/22/17- 1317 ML Result No enteric pathogens isolated Testing for Salmonella, Shigella, Aeromonas, Plesiomonas, Yersinia and Campylobacter are included in a Stool Culture. Vibrio spp not routinely tested for in a stool culture. If testing is desired, please request specifically when placing test order. Sensitivities not routinely performed on stool isolates, as antibiotics may prolong the carriage rate of bacteria. Please contact the microbiology lab if sensitivities are required. Stool Specimen Description Final 06/20/17- 1148 ML Stool Color Brown Stool Form Formed Stool Consistency Pasty Shiga Toxin 1 2 Final 06/21/17- 0848 ML Organism 1 Negative Shiga Toxin 1 2 CONTINUED ON NEXT PAGE * ML=Testing performed at Main Lab DEPARTMENT OF PATHOLOGY, [address] [place] [address] Nathan Negro M.D. Director [facility] # [id number] Patient: BERHANE VILLANUEVA [id number] (Continued) Specimen: [id number] Collected: 06/20/17 Received: 06/20/17 (Continued) Procedure Result Reported Site Shiga Toxin 1 2 Final (continued) 06/21/17- 48 Immunochromatographic Assay O P: Giardia/Cryptospor Screen Final 06/20/17- 1517 ML Organism 1 Neg Cryptosporidium/Giardia Giardia and cryptosporidium antigen testing performed by enzyme immunoassay. If patient is immunocompromised or has traveled to or is from a developing country, a full ova and parasite exam with microscopic (OPMIC) is recommended. All samples will be held one month in case full ova and parasite testing is requested. Contact the Microbiology Department at [phone]. TEST LIMITATIONS: As with all diagnostic procedures, the results obtained should be used in conjunction with other clinical information available the physician, including confirmation by another method. Negative results can occur in samples containing antigen below lower limits of detection of the assay. One negative specimen does not rule out the possibility of a parasitic infection. To improve detection it is recommended that three specimens be collected on separate days over a period of not more than seven days. The use of colonic washes, aspirates or other diluted sample types has not been established and could affect the performance of the assay. Stool samples contaminated with an oily or particulate base (eg. Barium, mineral oil etc.) could interfere with the test and are not recommended. * ML - MAIN LAB ([facility]) . END OF REPORT * ML=Testing performed at Main Lab DEPARTMENT OF PATHOLOGY, [address] [place] [address] Nathan Negro M.D. Director [facility] # [id number] 25 SEE RESULT BELOW Name: BERHANE VILLANUEVA : [address]: Sabas Savage MD Acct: [id number] Unit: [id number] AGE: 61 Location: OR Re01/02/17 SEX: F Status: DEP [facility] SPEC: [id number] PATTIE: 01/02/[address] [facility] [address]: Sabas Savage MD REQ: [id number] RECD: 01/02/17 STATUS: EVELIA WOO DR: Salud Crisostomo MD _ ORDERED: CONSULT W/ FS, FS ADDITIONAL, LEVEL IV FINAL DIAGNOSIS 1. Skin, nose, excision: -- Scar, excised. -- No evidence of residual basal cell carcinoma. COMMENT: The previous lesion at this site ([id number]) has been completely excised. PATHOLOGY SURGICAL CONSULT Frozen section (FS)/Touch Prep (TP)/Gross Consult (GC) FS) Skin, right superior lateral nose, excision: a. Scar. (EP) b. No residual basal cell carcinoma. (EP) Findings discussed with Dr Savage 01/02/17 at 1044. PRE-OPERATIVE DIAGNOSIS Basal cell carcinoma nose; suture zuniga 12 o'clock superior margin GROSS DESCRIPTION The specimen is received fresh labeled, Excision Basal Cell Carcinoma Nose, and consists of a 1.3 x 1.1 cm loredo-pink ovoid skin fragment excised to a depth of 0.2 cm. There is a suture attached to one long axis, which as per the accompanying requisition designates the 12:00 superior margin. The specimen is inked as follows: 9:00 half black, 3:00 half blue and 12:00 end green, serially sectioned from 12:00 to 6:00 and entirely submitted for frozen section microscopy. The frozen section residue is submitted in cassettes FSA and FSB to include ends in cassette FSA. CONTINUED ON NEXT PAGE * ML=Testing performed at Main Lab DEPARTMENT OF PATHOLOGY, [address] [place] [address] Nathan Negro M.D. Director [facility] # [id number] RUN DATE: 01/03/17 [facility] LAB LIVE PAGE 2 Patient: BERHANE VILLANUEVA [id number] (Continued) GROSS DESCRIPTION (Continued) Signed (signature on file) Sharon Harvey MD 06/14 1319 END OF REPORT * ML=Testing performed at Main Lab DEPARTMENT OF PATHOLOGY, [address] [place] [address] Nathan Negro M.D. Director [facility] # [id number] 26 The high-risk HPV types detected by the assay include: 16, 18, 31, 33, 35, 39, 45, 51, 52, 56, 58, 59, 66, and 68. 27 SEE RESULT BELOW Name: BERHANE VILLANUEVA : [address]: Meri Golden NP Acct: [id number] Unit: [id number] AGE: 61 Location: [facility] Re09/06/16 SEX: F Status: REG REF SPEC: [id number] PATTIE: 09/06/16-[address]: Meri Golden NP REQ: [id number] RECD: 09/08/16 STATUS: SOUT _ ORDERED: IMAGE ANALYSIS, HPV/Thin Prep, HPV 16/18 GENE COMMENTS: [id number] FINAL DIAGNOSIS Negative for Intraepithelial lesion or Malignancy A. Ectocervical/Endocervical Specimen Adequacy: Satisfactory of evaluation Transformation zone component identified Patient Information: HPV: High risk HPV RNA testing regardless of pap results. HPV 16/18 Genotype Reflex Actual Specimen Date: 09/06/16 LMP If Unknown: age 50+/- Spec Date if unknown: 08/2015 ?: N Post Menopausal?: Y Hysterectomy?: N Previous Abnormal Pap Smears?:Y If Yes, enter Diagnosis: +HPV Date Time Test Result Flag (u) Normal Range 09/08/16 1151 HPV RNA RFLX GE Negative Negative The high-risk HPV types detected by the assay include: 16, 18, 31, 33, 35, 39, 45, 51, 52, 56, 58, 59, 66, and 68. Signed (signature on file) JEREMY Rollins ([facility]) 09/11 1427 This Pap test was evaluated with the assistance of the delicious Test Imaging System. Due to cytologic findings at the consultant intern microscope, comprehensive manual rescreening by a Airveyor Operator may be required. The Pap Smear is a screening test designed to aid in the detection of premalignant and malignant conditions of the uterine cervix. It is not a diagnostic procedure and should not be used as the sole means of detecting cervical cancer. Both false- positive and false- negative reports do occur. Depending on your risk status, a Pap smear should be obtained and evaluated every 1-3 years. END OF REPORT * ML=Testing performed at Main Lab DEPARTMENT OF PATHOLOGY, [address] [place] [id number] RUN DATE: 09/11/16 [facility] LAB LIVE PAGE 1 Patient: BERHANE VILLANUEVA [id number] (Continued) Nathan Negro M.D. Director [facility] # [id number] 28 Desirable <150 Borderline high 150-199 High 200-499 Very High >500 29 Desirable <200 Borderline high 200-239 High >239 30 Low <40 Desirable: 40-60 High: >60 31 Desirable: <100 mg/dL Near Optimal: 100-129 mg/dL Borderline High: 130-159 mg/dL High: 160-189 mg/dL Very High: >189 mg/dL 32 Because ethnic data is not always readily available, this report includes an eGFR for both -Americans and non- Americans. The National Kidney Disease Education Program (NKDEP) does not endorse the use of the MDRD equation for patients that are not between the ages of 18 and 70, are , have extremes of body size, muscle mass, or nutritional status, or are non- or non-. According to the National Kidney Foundation, irrespective of diagnosis, the stage of the disease is based on the level of kidney function: Stage Description GFR(mL/min/1.73 m(2)) 1 Kidney damage with normal or decreased GFR 90 2 Kidney damage with mild decrease in GFR 60-89 3 Moderate decrease in GFR 30-59 4 Severe decrease in GFR 15-29 5 Kidney failure <15 (or dialysis) 33 Because ethnic data is not always readily available, this report includes an eGFR for both -Americans and non- Americans. The National Kidney Disease Education Program (NKDEP) does not endorse the use of the MDRD equation for patients that are not between the ages of 18 and 70, are , have extremes of body size, muscle mass, or nutritional status, or are non- or non-. According to the National Kidney Foundation, irrespective of diagnosis, the stage of the disease is based on the level of kidney function: Stage Description GFR(mL/min/1.73 m(2)) 1 Kidney damage with normal or decreased GFR 90 2 Kidney damage with mild decrease in GFR 60-89 3 Moderate decrease in GFR 30-59 4 Severe decrease in GFR 15-29 5 Kidney failure <15 (or dialysis) 34 Because ethnic data is not always readily available, this report includes an eGFR for both -Americans and non- Americans. The National Kidney Disease Education Program (NKDEP) does not endorse the use of the MDRD equation for patients that are not between the ages of 18 and 70, are , have extremes of body size, muscle mass, or nutritional status, or are non- or non-. According to the National Kidney Foundation, irrespective of diagnosis, the stage of the disease is based on the level of kidney function: Stage Description GFR(mL/min/1.73 m(2)) 1 Kidney damage with normal or decreased GFR 90 2 Kidney damage with mild decrease in GFR 60-89 3 Moderate decrease in GFR 30-59 4 Severe decrease in GFR 15-29 5 Kidney failure <15 (or dialysis) 35 SEE RESULT BELOW Name: BERHANE VILLANUEVA : [address]: Meri Golden NP Acct: [id number] Unit: [id number] AGE: 60 Location: [facility] Re09/03/15 SEX: F Status: REG REF SPEC: [id number] PATTIE: 09/03/15-[address] [facility] [address]: Meri Golden NP REQ: [id number] RECD: 09/03/15 STATUS: SOUT _ ORDERED: IMAGE ANALYSIS, HPV/Thin Prep, HPV 16/18 GENE FINAL DIAGNOSIS Negative for Intraepithelial lesion or Malignancy Shift in chaz suggestive of bacterial vaginosis A. Ectocervical/Endocervical Specimen Adequacy: Satisfactory of evaluation Transformation zone component identified Patient Information: HPV: High risk HPV RNA testing regardless of pap results. HPV 16/18 Genotype for HPV pos Actual Specimen Date: 09/03/15 LMP If Unknown: Last Menstrual Period Not Given. ?: N Date Time Test Result Flag (u) Normal Range 09/03/15 1314 HPV RNA RFLX GE POSITIVE H Negative The high-risk HPV types detected by the assay include: 16, 18, 31, 33, 35, 39, 45, 51, 52, 56, 58, 59, 66, and 68. Signed (signature on file) Ruthie Felix 09/06/15 Kaitlyn This Pap test was evaluated with the assistance of the Bent PixelsPrep Test Imaging System. Due to cytologic findings at the consultant intern microscope, comprehensive manual rescreening by a Airveyor Operator may be required. The Pap Smear is a screening test designed to aid in the detection of premalignant and malignant conditions of the uterine cervix. It is not a diagnostic procedure and should not be used as the sole means of detecting cervical cancer. Both false- positive and false- negative reports do occur. Depending on your risk status, a Pap smear should be obtained and evaluated every 1-3 years. END OF REPORT * ML=Testing performed at Main Lab DEPARTMENT OF PATHOLOGY, [facility] [employer] [place], [place] [address] Nathan Negro M.D. Director [facility] # [id number] 36 The high-risk HPV types detected by the assay include: 16, 18, 31, 33, 35, 39, 45, 51, 52, 56, 58, 59, 66, and 68. 37 Desirable <150 Borderline high 150-199 High 200-499 Very High >500 38 Desirable <200 Borderline high 200-239 High >239 39 Low <40 Desirable: 40-60 High: >60 40 Desirable: <100 mg/dL Near Optimal: 100-129 mg/dL Borderline High: 130-159 mg/dL High: 160-189 mg/dL Very High: >189 mg/dL 41 FASTING 10 HOUR 42 The urine specimen was tested at the listed cutoffs: Drug class test level (ng/ml) Amphetamines 300 Barbituates 200 Benzodiazepine metabolites 200 Cocaine metabolites 300 Cannabinoids 25 Opiates 200 Pcp 25 This is a screening procedure. Positive results are not confirmed. Specimen was received without chain of custody. Results should be used for medical purposes only. 43 RUN DATE: 09/27/14 [facility] LAB LIVE PAGE 1 RUN TIME: 806 [facility] [employer] [place], [place] [address] Specimen Inquiry Name: BERHANE VILLANUEVA : [address]: Steven Sanchez MD Acct: [id number] Unit: [id number] AGE: 59 Location: ED Re09/24/14 SEX: F Status: DEP ER SPEC: [id number] PATTIE: 09/25/[address]: Steven Sanchez MD REQ: [id number] RECD: 09/25/14 STATUS: ABRAHAM WOO DR: Salud Sapp MD _ SOURCE: URINE SPDESC: ORDERED: Urine Culture Procedure Result Verified Site Urine Culture Final 11/30/14- 0807 ML No Growth Day 2 (<1,000 CFU/mL) END OF REPORT * ML=Testing performed at Main Lab DEPARTMENT OF PATHOLOGY, [facility] [address] [place], [place] [address] Nathan Negro M.D. Director [facility] # [id number] 44 Potassium reference range changed effective 08/30/14 45 Because ethnic data is not always readily available, this report includes an eGFR for both -Americans and non- Americans. The National Kidney Disease Education Program (NKDEP) does not endorse the use of the MDRD equation for patients that are not between the ages of 18 and 70, are , have extremes of body size, muscle mass, or nutritional status, or are non- or non-. According to the National Kidney Foundation, irrespective of diagnosis, the stage of the disease is based on the level of kidney function: Stage Description GFR(mL/min/1.73 m(2)) 1 Kidney damage with normal or decreased GFR 90 2 Kidney damage with mild decrease in GFR 60-89 3 Moderate decrease in GFR 30-59 4 Severe decrease in GFR 15-29 5 Kidney failure <15 (or dialysis) 46 Therapeutic concentration: <50 ug/mL Toxic concentration: >120 ug/mL 47 RUN DATE: 07/28/14 [facility] LAB LIVE PAGE 1 RUN TIME: 8209 [facility] [employer] [place], [place] [address] Specimen Inquiry Name: BERHANE VILLANUEVA : [address]: Meri Golden NP Acct: [id number] Unit: [id number] AGE: 59 Location: [facility] Re07/27/14 SEX: F Status: REG REF SPEC: [id number] PATTIE: 07/27/14-[address]: Meri Golden NP REQ: [id number] RECD: 07/27/14-1853 STATUS: SOUT _ ORDERED: IMAGE ANALYSIS, PAP SM PATH REV, HPV/Thin Prep FINAL DIAGNOSIS EPITHELIAL CELL ABNORMALITIES Atypical squamous cells of undetermined significance COMMENTS: Specimen sent to [facility] [employer] in [place], [place] on 07/28/14 by [id number] at 1127. Results will be reported separately. A. Ectocervical/Endocervical Specimen Adequacy: Satisfactory of evaluation Transformation zone component identified Patient Information: HPV: High risk HPV DNA testing regardless of pap results. Actual Specimen Date: 07/27/14 LMP If Unknown: Last Menstrual Period Not Given. ?: N Signed (signature on file) Nathan Negro MD 1620 This Pap test was evaluated with the assistance of the Bent PixelsPrep Test Imaging System. Due to cytologic findings at the consultant intern microscope, comprehensive manual rescreening by a Airveyor Operator may be required. The Pap Smear is a screening test designed to aid in the detection of premalignant and malignant conditions of the uterine cervix. It is not a diagnostic procedure and should not be used as the sole means of detecting cervical cancer. Both false- positive and false- negative reports do occur. Depending on your risk status, a Pap smear shoudl be obtained and evaluated every 1-3 years. END OF REPORT * ML=Testing performed at Main Lab DEPARTMENT OF PATHOLOGY, [facility] [address] [place], [place] [address] Nathan Negro M.D. Director [facility] # [id number] RESULT: Ectocervical/Endocervical 49 Positive for one or more of the following Other High Risk HPV types: 31, 33, 35, 39, 45, 51, 52, 56, 58, 59, 66, and 68 Test Performed by: [place] [address] Assistant Plant Controller: Richard Jane M.D. 50 RUN DATE: 06/26/13 [facility] LAB LIVE PAGE 1 RUN TIME: [address] [place] [address] Specimen Inquiry Name: BERHANE VILLANUEVA : [address]: Meri Golden NP Acct: [id number] Unit: [id number] AGE: 58 Location: [facility] Re06/24/13 SEX: F Status: REG REF SPEC: [id number] PATTIE: 06/24/13-[address]: Meri Golden NP REQ: [id number] RECD: 06/24/13 STATUS: COMP _ SOURCE: URINE SPDESC: ORDERED: Urine Culture QUERIES: Medent Number [id number] Procedure Result Verified Site Urine Culture Final 06/26/13- 1104 ML No Growth Day 2 (<1,000 CFU/mL) END OF REPORT * ML=Testing performed at Main Lab DEPARTMENT OF PATHOLOGY, [address] [place] [address] Nathan Negro M.D. Director [facility] Permit #[id number] RUN DATE: 05/05/13 [facility] LAB LIVE PAGE 1 RUN TIME: [address] [place] [address] Specimen Inquiry Name: BERHANE VILLANUEVA : [address]: Everton Miranda MD Acct: [id number] Unit: [id number] AGE: 58 Location: ED Re05/02/13 SEX: F Status: DEP ER SPEC: [id number] PATTIE: 05/03/[address] [facility] [address]: Everton Miranda MD REQ: [id number] RECD: 05/03/13 STATUS: ABRAHAM WOO DR: Meri Golden PIECER UP _ SOURCE: URINE SPDESC: ORDERED: Urine Culture Procedure Result Verified Site Urine Culture Final 05/05/13- 0841 ML Organism 1 STAPHYLOCOCCUS AUREUS Lyons Count 75-100,000 (Many) CFU/ML Organism 2 NORMAL CHAZ Lyons Count 10-25,000 (Moderate) CFU/ML 1. STAPHYLOCOCCUS AUREUS M.I.C. RX --------- ------ Penicillin >=0.5 R Gentamicin <=0.5 S Linezolid 2 S Nitrofurantoin 32 S Oxacillin 0.5 S * Quinupristin/Dalfopristin <=0.25 S Rifampin <=0.5 S Tetracycline <=1 S Doxycycline - Deduced S * Minocycline - Deduced S Trimethoprim/Sulfamethoxazole <=10 S Vancomycin <=0.5 S Imipenem-Deduced S * Ampicillin/Sulbactam-Deduced S Cefazolin-Deduced S * These antibiotics are not available in the [facility] Formulary Contact the Microbiology Department for any additional antibiotic reporting. END OF REPORT * ML=Testing performed at Main Lab DEPARTMENT OF PATHOLOGY, [address] [place] [address] Nathan Negro M.D. Director [facility] Permit #[id number] 52 Because ethnic data is not always readily available, this report includes an eGFR for both -Americans and non- Americans. The National Kidney Disease Education Program (NKDEP) does not endorse the use of the MDRD equation for patients that are not between the ages of 18 and 70, are , have extremes of body size, muscle mass, or nutritional status, or are non- or non-. According to the National Kidney Foundation, irrespective of diagnosis, the stage of the disease is based on the level of kidney function: Stage Description GFR(mL/min/1.73 m(2)) 1 Kidney damage with normal or decreased GFR 90 2 Kidney damage with mild decrease in GFR 60-89 3 Moderate decrease in GFR 30-59 4 Severe decrease in GFR 15-29 5 Kidney failure <15 (or dialysis) 53 CKMB interpretation should be made in conjunction with clinical symptoms, patient history and EKG changes. 54 Reference Range and Interpretation: TnI (ng/mL) Interpretation Less Than 0.06 ng/mL Not supportive of diagnosis of AK 0.06 - 0.50 ng/mL Indeterminate: suggest serial studies if clinically indicated. Greater than 0.5 ng/mL Consistent with diagnosis of AK 55 The detection limit for Ethanol is 10.0 mg/dl . Values less than 10.0 mg/dl cannot be accurately measured. 56 The urine specimen was tested at the listed cutoffs: Drug class test level (ng/ml) Amphetamines 300 Barbituates 200 Benzodiazepine metabolites 200 Cocaine metabolites 300 Cannabinoids 25 Opiates 200 Pcp 25 This is a screening procedure. Positive results are not confirmed. Specimen was received without chain of custody. Results should be used for medical purposes only. 57 This test detects intact HCG only and is indicated for the early detection of . 58 RUN DATE: 10/30/12 [facility] LAB LIVE PAGE 1 RUN TIME: 8[address] [place], [place] [address] Specimen Inquiry Name: BERHANE VILLANUEVA : [address]: Lupe JENSEN, Wajeeh Acct: [id number] Unit: [id number] AGE: 57 Location: [facility] Re10/29/12 SEX: F Status: DEP ER SPEC: [id number] PATTIE: 10/29/[address] [facility] [address]: Rohini Godfrey NP REQ: [id number] RECD: 10/30/12 STATUS: COMP [facility] DR: Meri Golden MD,Wajeeh _ SOURCE: NASAL ASPI SPDES: ORDERED: Rapid Flu A B Procedure Result Verified Site Rapid Influenza A B Antigen Final 10/30/12- 1158 ML Influenza A Antigen Negative by Enzyme Immunoassay Influenza B Antigen Negative by Enzyme Immunoassay Cell culture testing can be performed to confirm negative test results and to assist in detecting other viruses that can produce similar clinical symptoms. Please notify Microbiology Lab if further testing is desired. END OF REPORT * ML=Testing performed at Main Lab DEPARTMENT OF PATHOLOGY, [facility] [address] [place], [place] [address] Nathan Negro M.D. Director [facility] Permit #[id number] RUN DATE: 10/16/12 [facility] LAB LIVE PAGE 1 RUN TIME: 1456 [facility] [employer] [place], [place] [address] Specimen Inquiry Name: BERHANE VILLANUEVA : [address]: Meri Golden Acct: [id number] Unit: [id number] AGE: 57 Location: [facility] Re10/15/12 SEX: F Status: REG REF SPEC: [id number] PATTIE: 10/15/12-[address] [facility] [address]: Meri Golden REQ: [id number] RECD: 10/16/12 STATUS: SOUT _ ORDERED: IMAGE ANALYSIS Negative for Intraepithelial lesion or Malignancy A. Ectocervical/Endocervical Specimen Adequacy: Satisfactory of evaluation Transformation zone component identified Patient Information: HPV: Thin Layer Pap Test w/reflex to high risk HPV DNA testing when ASCUS Actual Specimen Date: 10/15/12 Spec Date if unknown: 09/08 Cautery: N IUD: N Lesion, grossly demonstrate: N ?: N Post Menopausal?: Y Hysterectomy?: N Previous Abnormal Pap Smears?:N Signed (signature on file) Kristen JEREMY Maki (ASCP) 10/16/12 3788 This Pap test was evaluated with the assistance of the Bent PixelsPrep Test Imaging System. Due to cytologic findings at the consultant intern microscope, comprehensive manual rescreening by a Airveyor Operator may be required. The Pap Smear is a screening test designed to aid in the detection of premalignant and malignant conditions of the uterine cervix. It is not a diagnostic procedure and should not be used as the sole means of detecting cervical cancer. Both false- positive and false- negative reports do occur. Depending on your risk status, a Pap smear shoudl be obtained and evaluated every 1-3 years. END OF REPORT * ML=Testing performed at Main Lab DEPARTMENT OF PATHOLOGY, [address] [place] [address] Nathan Negro M.D. Director [facility] Permit #[id number] ---- RUN DATE: 09/27/11 [facility] LIVE PAGE 1 RUN TIME: 1445 Specimen Inquiry RUN USER: INTERFACE -- Name: BERHANE VILLANUEVA Status: REG REF Re09/26/11 Age/Sex: 56/F Unit#: [id number] [facility] -- [id number] [facility] Spec Date: 09/26/[address]: Meri martines [facility] Spec Type: CYTOLOGY Received: 09/27/11-1113 Copies to: SOURCE ECTOCERVICAL/ENDOCERVICAL Thin Prep with Reflex HPV Test PATIENT INFORMATION ACTUAL COLLECTION DATE: 09/26/11 ? No POST MENOPAUSAL? No HYSTERECTOMY? No PREVIOUS ABNORMAL PAP SMEARS No PATIENT HISTORY: Last menstrual period at age 55 ADEQUACY OF SPECIMEN Satisfactory for evaluation * Transformation zone component identified * DIAGNOSIS NEGATIVE FOR INTRAEPITHELIAL LESION OR MALIGNANCY * This Pap test was evaluated with the assistance of the ThinPrep Pap Test Imaging System. The Pap Smear is a screening test designed to aid in the detection of premalign ant and malignant conditions of the uterine cervix. It is not a diagnostic procedure a nd should not be used as the sole means of detecting cervical cancer. Both false- positiv e and false-negative reports do occur. Depending on your risk status, a Pap smear vitaly uld be obtained and evaluated every one to three years. Initial evaluation performed by Susana DOUGLAS(ASCP) 09/27/11 Final Interpretation electronically signed by: Susana DOUGLAS CT([facility]) 09/27/11 1444 -- -- DEPARTMENT OF PATHOLOGY, [address] [place] [address] [facility] Permit #[id number] Nathan Negro M.D. Director Liane Santo M.D. [employer] Salesperson Dir faust -- Procedures Date Code Description Status 12/24/2018 [id number] Mammogram Completed 09/11/2017 25973 Admin & Interp Of Health Risk Assessment w/ Patient Completed 07/05/2017 [id number] Diabetic Retinal Eye Exam Completed 10/13/2016 [id number] Mammogram Completed 12/31/2015 25351 EKG Tracing & Interpretation Completed 10/12/2015 [id number] Mammogram Completed 10/15/2014 97605 Holter Monitor Review (24 hr)dr review & interp only Completed 09/21/2014 95373 Polysomnography Sleep Staging 4+ Parameters W/Cpap Completed 09/11/2014 45963096 Mammogram Completed 08/31/2014 71824 Polysomnography Sleep Staging 4+ Parameters Completed 05/30/2013 25983 Removal Skin Tags Up To 15 Completed 06/24/2012 82893 EKG Tracing & Interpretation Completed 06/15/2011 78680 Noninvasive Ear Or Pulse Oximetry For Oxygen Completed Saturation 06/15/2011 59986 EKG Tracing & Interpretation Completed 01/18/2011 07024 EKG Tracing & Interpretation Completed 11/25/2010 15327560 Mammogram Completed 09/16/2010 33630 Endometrial Sampling W Or W/O Endocervical BX W Or W/O Completed Cerv Dilat 03/15/2010 45483 EKG Tracing & Interpretation Completed 01/03/2010 80842 Inject Tendon Sheath Or Ligament Aponeurosis Eg Completed Plantar Fascia 01/03/2010 77065 Inject/Drain Joint/Bursa Intermediate W/O US Completed 09/15/2009 90954 EKG Tracing & Interpretation Completed 11/29/2008 [id number] Colonoscopy Completed 12/10/2007 05284 EKG Tracing & Interpretation Completed 12/10/2007 52700 EKG Tracing & Interpretation Completed 11/02/2006 [id number] Diabetic Foot Exam Completed Encounters Type Date Location Provider Dx Diagnosis Office Visit 09/13/2018 [facility], S06.0x0A Concussion without 1:00p Medicine - N.P. loss of [place] consciousness, initial encounter R53.81 Other malaise Z12.31 Encntr screen mammogram for malignant neoplasm of breast Office Visit 05/10/2018 10:20a [facility], R94.4 Abnormal Medicine - N.P. results of [place] kidney function studies I10 Essential (primary) hypertension Office Visit 04/15/2018 1:40p [facility], L63.9 Alopecia areata, Medicine N.P. unspecified Office Visit 04/12/2018 10:00a [facility], F33.9 Major depressive Medicine N.P. 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 hypertension F33.9 Major depressive disorder, recurrent, unspecified Office Visit 02/11/2018 3:40p [facility] Meri Golden, R10.12 Left upper Medicine N.P. quadrant pain H92.02 Otalgia, left ear Office Visit 09/25/2017 10:30a [facility] Jazmine Abreu MD R51 Headache F07.81 Postconcussional syndrome Office Visit 09/11/2017 10:40a [facility] Internal Meri Golden, Z00.01 Encounter for Medicine N.P. general adult medical exam w abnormal findings Z12.31 Encntr screen mammogram for malignant neoplasm of breast I10 Essential (primary) hypertension F41.9 Anxiety disorder, unspecified K21.9 Gastro-esophageal reflux disease without esophagitis G47.33 Obstructive sleep apnea (adult) (pediatric) F17.210 Nicotine dependence, cigarettes, uncomplicated R51 Headache R19.7 Diarrhea, unspecified Z00.00 Encntr for general adult medical exam w/o abnormal findings Office Visit 07/27/2017 10:20a [facility] Meri Golden, F41.9 Anxiety disorder, Medicine N.P. unspecified G47.33 Obstructive sleep apnea (adult) (pediatric) K21.9 Gastro-esophageal reflux disease without esophagitis R19.7 Diarrhea, unspecified R11.0 Nausea K13.70 Unspecified lesions of oral mucosa Office Visit 06/12/2017 4:20p [facility] Meri Golden, R53.81 Other malaise Medicine N.P. R19.7 Diarrhea, unspecified Office Visit 04/16/2017 1:00p [facility] Meri Golden, I10 Essential ( primary) Medicine N.P. hypertension M54.32 Sciatica, left side M46.1 Sacroiliitis, not elsewhere classified Office Visit 12/05/2016 [facility] Meri J06.9 Acute upper 2:20p Medicine Varn, N.P. respiratory infection, unspecified Office Visit 11/28/2016 [place] Jazmine Abreu, F07.81 Postconcussional 11:30a Neurologic syndrome Services [facility] Office Visit 09/06/2016 [facility] Meri Z12.31 Encntr screen 10:40a Medicine Varn, N.P. mammogram for malignant neoplasm of breast I10 Essential (primary) hypertension F41.9 Anxiety disorder, unspecified K21.9 Gastro-esophageal reflux disease without esophagitis G47.33 Obstructive sleep apnea (adult) (pediatric) H92.02 Otalgia, left ear R87.810 Cervical high risk HPV Dna test positive Z00.00 Encntr for general adult medical exam w/o abnormal findings Office Visit 07/11/2016 Luis Alberto Abreu, F07.81 Postconcussional 1:30p Neurologic MD syndrome [facility] R94.02 Abnormal brain scan Office Visit 05/30/2016 9:00a [facility] Meri Golden, I10 Essential ( primary) Medicine N.P. hypertension J01.00 Acute maxillary sinusitis, unspecified Office Visit 03/31/2016 11:40a [facility] Meri Golden, L08.9 Local infection of Medicine N.P. the skin and subcutaneous tissue, unsp S91.332A Puncture wound without foreign body, left foot, init encntr Office Visit 2016 9:40a [facility] Medicine Yony Simpson NP R05 Cough J20.9 Acute bronchitis, unspecified Office Visit 12/31/2015 8:40a [facility] Meri Golden, Z01.818 Encounter for other Medicine N.P. preprocedural examination M25.552 Pain in left hip I10 Essential (primary) hypertension F41.9 Anxiety disorder, unspecified K21.9 Gastro-esophageal reflux disease without esophagitis G47.33 Obstructive sleep apnea (adult) (pediatric) R05 Cough Office Visit 11/17/2015 Luis Alberto Abreu, F07.81 Postconcussional 10:30a Neurologic MD syndrome [facility] R94.02 Abnormal brain scan Office Visit 09/27/2015 [facility] Matty Golden, F07.81 Postconcussional 11:40a Medicine N.P. syndrome R87.810 Cervical high risk HPV Dna test positive F41.9 Anxiety disorder, unspecified Office Visit 09/21/2015 Luis Alberto Abreu, F07.81 Postconcussional 9:30a Neurologic MD syndrome [facility] F41.9 Anxiety disorder, unspecified Office Visit 09/03/2015 10:40a [facility] Meri Golden, Z00.01 Encounter for Medicine N.P. general adult medical exam w abnormal findings Z12.39 Encounter for oth screening for malignant neoplasm of breast F41.9 Anxiety disorder, unspecified I10 Essential (primary) hypertension F07.81 Postconcussional syndrome R87.618 Oth abnormal cytolog findings on specimens from cervix uteri M25.552 Pain in left hip R55 Syncope and collapse Office Visit 08/27/2015 [facility] Meri Golden, F07.81 Postconcussional 1:20p Medicine N.P. syndrome M25.552 Pain in left hip M54.5 Low back pain Office Visit 08/19/2015 [facility] Meri Golden, F07.81 Postconcussional 2:35p Medicine N.P. syndrome Office Visit 06/01/2015 [facility] Meri Golden, 133.0 Scabies 9:00a Medicine N.P. 709.9 Skin & Subcutaneous Tissue Disorders Unspec 782.1 Rash & Other Nonspec Skin Eruption Office Visit 03/30/2015 1:00p [facility] Sabas Ambriz, 465.8 Upper Respiratory Medicine PIECER UP Infections Acute Other Multiple Sites 995.3 Allergy Unspec 465.9 URI Upper Respiratory Infections Acute Unspec Sites 477.9 Rhinitis Allergic Cause Unspec Office Visit 10/16/2014 Pulmonology And [place] 327.23 Obstructive Sleep 9:30a Sleep Services Of RASHEED Weeks RN, Apnea Adult & [facility] Pediatric 780.53 Hypersomnia W/ Sleep Apnea Unspecified Office Visit 10/07/2014 1:20p [facility] Meri Golden, 311 Depressive Medicine N.P. Disorder Not Elsewhere Spec 780.2 Syncope & Collapse Office Visit 08/06/2014 2:30p Pulmonology And Fady MCCURDY 780.53 Hypersomnia W/ Sleep Services Of [facility] Albarado Sleep Apnea [facility] Unspecified Office Visit 07/27/2014 1:40p [facility] Internal Meri Golden, V70.0 Examination Medicine N.P. General Medical Routine AT Health Care Facility V72.31 Routine Observation Assistant Examination 401.1 Hypertension Benign 311 Depressive Disorder Not Elsewhere Spec 300.00 Anxiety State Unspec V76.10 Screening For Malignant Neoplasm Breast Office Visit 04/08/2014 10:40a [facility] Meri Varn, 311 Depressive Medicine N.P. Disorder Not Elsewhere Spec 780.79 Malaise And Fatigue Other Office Visit 06/24/2013 2:00p [facility] Meri Varn, 599.0 UTI Urinary Medicine N.P. Tract Infection Site Not Spec 401.1 Hypertension Benign Office Visit 03/06/2013 1:00p [facility] Nelsy Pérez, 845.09 Sprains & Medicine M.DMary Kay, FACP Strains Ankle Other 723.1 Cervicalgia Office Visit 10/15/2012 10:40a [facility] Meri Varn, V70.0 Examination Medicine N.P. General Medical Routine AT Health Care Facility V72.31 Routine Observation Assistant Examination V76.10 Screening For Malignant Neoplasm Breast 401.1 Hypertension Benign 530.81 Esophageal Reflux 300.00 Anxiety State Unspec 724.5 Backache Unspec Office Visit 06/24/2012 3:00p [facility] Meri Morron, V72.84 Examination Medicine N.P. Preoperative Unspec 715.00 Osteoarthrosis Generalized Site Unspec 401.1 Hypertension Benign 530.81 Esophageal Reflux Office Visit 03/07/2012 10:40a [facility] Meri Varn, 706.2 Sebaceous Cyst Medicine N.P. 401.1 Hypertension Benign Office Visit 10/13/2011 9:40a DO Not Use Meri Varn, 461.9 Sinusitis Acute Mechanical Equipment [employer] N.P. Unspec V15.05 Allergy To Other Foods Office Visit 09/26/2011 DO Not Use Meri Varn, V70.0 Examination 9:00a [employer] Equipment [employer] N.P. General Medical Routine AT Health Care Facility V72.31 Routine Observation Assistant Examination 401.1 Hypertension Benign 300.00 Anxiety State Unspec 724.5 Backache Unspec 787.91 Diarrhea Office Visit 08/01/2011 DO Not Use Meri Varn, 724.2 Lumbago 10:40a [employer] N.P. Office Visit 06/15/2011 DO Not Use Nelsybob Pérez, 786.59 Pain Chest Other 1:20p Gracia Hendrickson, FACP Office Visit 06/01/2011 DO Not Use Meri Varn, 112.3 Candidiasis Skin 10:40a [employer] N.P. & Nails Office Visit 03/17/2011 DO Not Use Meri Varn, 401.1 Hypertension 8:40a [employer] N.P. Benign 719.45 Pain Joint Pelvic Region & Thigh Office Visit 02/24/2011 8:30a DO Not Use Meri Varn, 300.00 Anxiety State [employer] Equipment [employer] N.P. Unspec 706.2 Sebaceous Cyst Office Visit 01/18/2011 11:15a DO Not Use Nelsy Elisa, 300.00 Anxiety State [employer] Emeka, FACP Unspec 786.50 Pain Chest Unspec Office Visit 12/07/2010 9:00a DO Not Use Nurse Visit A 380.4 Impacted [employer] Cerumen Office Visit 11/28/2010 1:30p DO Not Use Meri Varn, 373.11 Hordeolum [employer] N.P. Externum 386.11 Vertigo Benign Paroxysmal Position 780.79 Malaise And Fatigue Other Office Visit 11/16/2010 DO Not Use Meri Varn, 386.11 Vertigo Benign 4:00p [employer] N.P. Paroxysmal Position 373.00 Blepharitis Unspec Office Visit 09/16/2010 DO Not Use Meri Varn, v72.31 Routine Observation Assistant 8:45a [employer] Equipment [employer] N.P. Examination 626.2 Menstruation Excessive Or Frequent Office Visit 09/13/2010 DO Not Use Meri Varn, 626.2 Menstruation 2:30p [employer] N.P. Excessive Or Frequent Office Visit 08/31/2010 DO Not Use Meri Varn, 462 Pharyngitis Acute 11:30a [employer] N.P. 626.2 Menstruation Excessive Or Frequent Office Visit 07/08/2010 10:00a DO Not Use Meri Varn, 300.00 Anxiety State [employer] Equipment [employer] N.P. Unspec 311 Depressive Disorder Not Elsewhere Spec Office Visit 06/03/2010 9:15a DO Not Use Meri Varn, 311 Depressive Mechanical Equipment [employer] N.P. Disorder Not Elsewhere Spec 300.00 Anxiety State Unspec Office Visit 05/09/2010 DO Not Use Meri Varn, 462 Pharyngitis Acute 2:45p [employer] N.P. Office Visit 03/31/2010 DO Not Use Meri [place], 723.1 Cervicalgia 9:30a [employer] N.P. 719.41 Pain Joint Shoulder Region Office Visit 03/15/2010 1:15p DO Not Use Meri Varn, 719.41 Pain Joint [employer] N.P. Shoulder Region 733.6 Tietzes Disease 724.1 Pain Thoracic Spine 530.81 Esophageal Reflux 401.1 Hypertension Benign Office Visit 01/03/2010 2:00p Orthopedic Torrey Tadeo, 716.91 Arthropathy Unspec Services Of M.D. Shoulder Region [facility] 726.10 Bursae & Tendon Disorders Shoulder Region Unspec Office Visit 12/15/2009 1:30p Orthopedic Torrey Tadeo, 726.10 Bursae & Tendon Services Of [facility]. M.D. Disorders Shoulder Region Unspec 718.98 Derangement Joint Unspec Other Spec Sites Office Visit 11/24/2009 3:45p Orthopedic Services Kerrie [place] PA 841.9 Sprains & Of C.M.A. Strains Elbow & Forearm Unspec 726.8 Enthesopathies Peripheral Other 923.11 Contusion Elbow 840.9 Sprains & Strains Shoulder & Upper Arm Unspec Office Visit 11/24/2009 1:15p DO Not Use Meri Varn, 729.5 Pain In Mechanical Equipment [employer] N.P. Limb 726.33 Bursitis Olecranon Office Visit 09/15/2009 DO Not Use Meri Varn, V72.31 Routine Observation Assistant 1:15p [employer] Equipment [employer] N.P. Examination V06.1 Pqzdwbvxaq-Qxzxily-Wsnztqyz Combined (DTaP) 401.1 Hypertension Benign Office Visit 04/16/2009 DO Not Use Meri Varn, 916.0 Injury 10:15a [employer] Equipment [employer] N.P. Superficial Abrasion Hip Thigh Leg Ankle W/O Infec Office Visit 02/19/2009 DO Not Use Nelsy Pérez, 723.1 Cervicalgia 8:30a GilbertoSilver Plume M.Nav, FACP 558.9 Gastroenteritis & Colitis Noninfectious Other 401.1 Hypertension Benign Office Visit 12/21/2008 11:45a DO Not Use Nelsybob Pérez, 053.9 Herpes Zoster W/O Gracia Hendrickson, FACP Complication 558.9 Gastroenteritis & Colitis Noninfectious Other 311 Depressive Disorder Not Elsewhere Spec 300.00 Anxiety State Unspec Office Visit 08/21/2008 DO Not Use Meri Varn, 401.1 Hypertension 8:30a Mechanical Equipment [employer] N.P. Benign 311 Depressive Disorder Not Elsewhere Spec Office Visit 07/23/2008 DO Not Use Meri Varn, V72.31 Routine Observation Assistant 9:15a Mechanical Equipment Test [employer] N.P. Examination 401.1 Hypertension Benign 311 Depressive Disorder Not Elsewhere Spec Office Visit 07/10/2008 9:00a DO Not Use Meri Varn, 461.9 Sinusitis Acute Mechanical Equipment Test [employer] N.P. Unspec 311 Depressive Disorder Not Elsewhere Spec Office Visit 2008 DO Not Use Meri Varn, 401.1 Hypertension 11:15a Mechanical Equipment [employer] N.P. Benign Office Visit 01/14/2008 DO Not Use Nelsybob Pérez, 780.79 Malaise And 12:15p Gracia Hendrickson, FACP Fatigue Other 719.40 Pain Joint Site Unspec Office Visit 12/24/2007 DO Not Use Meri Varn, 401.1 Hypertension 9:00a Mechanical Equipment [employer] N.P. Benign Office Visit 12/10/2007 DO Not Use Meri Varn, 786.50 Pain Chest Unspec 8:30a Mechanical Equipment Test [employer] N.P. 719.41 Pain Joint Shoulder Region 719.43 Pain Joint Forearm 401.1 Hypertension Benign Office Visit 10/01/2007 DO Not Use Meri Varn, 465.9 URI Upper 3:00p Mechanical Equipment [employer] N.P. Respiratory Infections Acute Unspec Sites Office Visit 05/21/2007 DO Not Use Meri Varn, 401.1 Hypertension 9:00a Mechanical Equipment [employer] N.P. Benign Office Visit 05/07/2007 DO Not Use Meri Varn, 709.9 Skin & 9:45a Mechanical Equipment Test [employer] N.P. Subcutaneous Tissue Disorders Unspec 401.1 Hypertension Benign Office Visit 03/19/2007 DO Not Use Meri Varn, 401.1 Hypertension 10:15a Mechanical Equipment Test [employer] N.P. Benign Office Visit 03/11/2007 DO Not Use Emri Varn, 611.71 Mastodynia 10:30a Mechanical Equipment Test [employer] N.P. Office Visit 01/22/2007 DO Not Use Meir Varn, 462 Pharyngitis Acute 2:45p Mechanical Equipment Test [employer] N.P. Office Visit 12/06/2006 DO Not Use Nelsy Elisa, 473.9 Sinusitis Chronic 9:00a Gracia Hendrickson, FACP Unspec Office Visit 11/19/2006 DO Not Use Meri Varn, 461.9 Sinusitis Acute 11:45a Mechanical Equipment Test Engineer[employer] N.P. Unspec 401.1 Hypertension Benign Office Visit 10/30/2006 DO Not Use Nelsy Elisa, 466.0 Bronchitis Acute 11:45a Gracia Hendrickson, FACP Office Visit 10/16/2006 DO Not Use Meri Varn, 709.9 Skin & 10:00a Mechanical Equipment Test [employer] N.P. Subcutaneous Tissue Disorders Unspec 692.9 Dermatitis Unspec Cause Due To Spec Agents Other 300.00 Anxiety State Unspec Plan of Treatment Future Appointment(s):03/21/2019 12:00 pm - Rajat Rojas M.D. at [place] [facility]11/28/2019 1:00 pm - Meri Golden, N.P. at [facility] Internal Wmwmzldt68/20/2019 - Salud Sapp M.D.M54.2 CervicalgiaNew Medication:Tizanidine HCL 2 mg - 1 by mouth every 8 h. may increase to 1-2 by mouth every 8h after a few days if neededComments:Tizanidine is a muscle relaxer , take it twice in the day time and 2 pills at night Heat may helpR05 CoughComments:Start the inhalersAdd antihistamine - levocetirizine
--- NOTE | 2019-04-03 16:17 | ED ---
Complex/Multi-Sys Presentation - HPI Summary HPI Summary: Patient is a 64 y/o F presenting to ED with complaints of dizziness, high BP, and chest pain. Patient had an episode of chest pain two days ago. Chest pain at the time is described as a pressure. Today, around noon, patient had room- spinning dizziness and felt near syncopal. Patient states that she was unsteady on her feet, and went to her car. She felt somewhat better at the time. However , later she felt nauseous and "wozzy". Patient also reports experiencing intermittent left shoulder pain that onset this past weekend after she had been pruning shrubbery. She went to her osteopathic doctor, Dr. Castillo, today for lymphatic drainage. In the past few times she has been there, she has had high BP measurements, same today. Systolic BP was [address] Castillo' office. Patient was advised to come to ED for evaluation. Hx of panic attacks is noted. Patient notes that she served divorce papers to her partner this morning. She states this was stressful but congenial; the two have been for years. SI is denied. PMHx of HTN. No Hx of diabetes, HLD. FMHx of cardiac disease is denied. Patient is a current smoker, drinks beer daily, states that she does not go through withdrawals. Dr. Sapp is PCP. Leg pain, swelling, LAGOS are denied. However, she does report some "tingling" in her head, noting that she had brain MRI last week due to a "severe" concussion she had previously. Hx of chronic diarrhea is also noted, patient has had colonoscopy and endoscopy done by Dr. Church. She was diagnosed with microcolitis and was placed on a steroid, that she recently finished. Pt denies any fever, chills, erythema of eyes, sore throat, SOB, cough, abdominal pain, vomiting, dysuria, hematuria, edema, rash. On triage, pain is rated 0/10, nothing is noted to aggravate/alleviate Sx. Home medications and allergies are reviewed. - History Of Current Complaint Chief Complaint: EDDizziness Time Seen by Provider: 04/03/19 15:54 Hx Obtained From: Patient Onset/Duration: Lasting Hours, Lasting Days - chest pain two days ago, Still Present Timing: Intermittent, Lasting:, Hours, Days - chest pain two days ago Severity Currently: None Severity Initially: Moderate Location: Pain At: - chest Aggravating Factor(s): nothing Alleviating Factor(s): nothing Associated Signs And Symptoms: Positive: Dizziness, Syncope - NEAR, Chest Pain, Nausea, Other - high BP, left shoulder pain endorsed; fever, chills, erythema of eyes, sore throat, SOB, cough, abdominal pain, vomiting, dysuria, hematuria, edema, leg pain, and rash are denied. Negative: Headache, SOB, Cough, Edema, Vomiting, Abdominal Pain, Dysuria, Fever - Allergies/Home Medications Allergies/Adverse Reactions: Allergies Allergy/AdvReac Type Severity Reaction Status Date / Time No Known Allergies Allergy Verified 04/03/19 14:46 Home Medications: Home Medications LevoCETirizine TAB (NF) [Xyzal TAB (NF)] 5 mg PO DAILY PRN 04/03/19 [History Confirmed 04/03/19] Magnesium Oxide [Magnesium] 500 mg PO DAILY 04/03/19 [History Confirmed 04/03/19 ] Omeprazole CAP (NF) [Prilosec CAP* 20 MG] 20 mg PO BID 04/03/19 [History Confirmed 04/03/19] PMH/Surg Hx/FS Hx/Imm Hx Endocrine/Hematology History: Denies: Hx Diabetes, Hx Thyroid Disease Cardiovascular History: Reports: Hx Hypertension Denies: Hx Pacemaker/ICD Respiratory History: Reports: Hx Sleep Apnea Denies: Hx Asthma, Hx Chronic Obstructive Pulmonary Disease (COPD) GI History: Reports: Hx Gastroesophageal Reflux Disease - omeprazole very rare, Hx Irritable Bowel - comes and goes Denies: Hx Ulcer History: Denies: Hx Renal Disease Musculoskeletal History: Reports: Hx Arthritis Sensory History: Reports: Hx Contacts or Glasses - glasses Denies: Hx Hearing Aid Opthamlomology History: Reports: Hx Contacts or Glasses - glasses Neurological History: Reports: Hx Headaches Psychiatric History: Reports: Hx Anxiety, Hx Depression, Hx Panic Disorder - ATTACKS-WILL MEDICATE Denies: Hx Eating Disorder, Hx of Violent Episodes Against Others - Cancer History Cancer Type, Location and Year: SKIN Hx Chemotherapy: No Hx Radiation Therapy: No - Surgical History Surgery Procedure, Year, and Place: RIGHT HIP REPLACEMENT 2013, 2 C-SECTIONS 1997, 2000, MULTIPLE SURGERIES FOR INFERTILITY, WISDOM TEETH EXTRACTION, CYSTS REMOVED FROM BEHIND EARS-. 01/26/2016 LEFT HIP REPLACEMENTS, hysteroscopy, laparoscopy Hx Anesthesia Reactions: No Infectious Disease History: No Infectious Disease History: Reports: Hx Shingles Denies: Hx Clostridium Difficile, Hx Hepatitis, Hx Human Immunodeficiency Virus (HIV), Hx of Known/Suspected MRSA, Hx Tuberculosis, Hx Known/Suspected VRE , Hx Known/Suspected VRSA, History Other Infectious Disease, Traveled Outside the [place] in Last 30 Days - Family History Known Family History: Negative: Cardiac Disease Family History: Father: skin CA. grandfather: stroke - Social History Alcohol Use: Daily Alcohol Amount: 2 DRINKS/DAY Substance Use Type: Reports: Marijuana Substance Use Comment - Amount & Last Used: occassionally Smoking Status (MU): Light Every Day Tobacco Smoker Type: Cigarettes Amount Used/How Often: 5-6 CIG/DAY Length of Time of Smoking/Using Tobacco: 40+ years Review of Systems Negative: Fever, Chills Negative: Erythema Negative: Sore Throat Cardiovascular: Other - POSITIVE - HIGH BP Positive: Chest Pain Negative: Shortness Of Breath, Cough Positive: Nausea. Negative: Abdominal Pain, Vomiting Negative: dysuria, hematuria Positive: Myalgia - POSITIVE - LEFT SHOULDER PAIN; NEGATIVE - LEG PAIN . Negative: Edema Negative: Rash Neurological: Other - POSITIVE - DIZZINESS Positive: Syncope - NEAR All Other Systems Reviewed And Are Negative: Yes Physical Exam - Summary Physical Exam Summary: Constitutional: Well-developed, Well-nourished, Alert. (-) Distressed Skin: Warm, Dry HENT: Normocephalic; Atraumatic Eyes: Conjunctiva normal Neck: Musculoskeletal ROM normal neck. (-) JVD, (-) Stridor, (-) Tracheal deviation Cardio: Rhythm regular, rate normal, Heart sounds normal; Intact distal pulses; The pedal pulses are 2+ and symmetric. Radial pulses are 2+ and symmetric. (-) Murmur Pulmonary/Chest wall: Effort normal. (-) Respiratory distress, (-) Wheezes, (-) Rales Abd: Soft, (-) tenderness, (-) Distension, (-) Guarding, (-) Rebound Musculoskeletal: (-) Edema Lymph: (-) Cervical adenopathy Neuro: Alert, Oriented x3 Psych: Mood and affect Normal Triage Information Reviewed: Yes Vital Signs On Initial Exam: Initial Vitals Temp Pulse Resp BP Pulse Ox 98 F 84 16 154/93 98 04/03/19 14:42 04/03/19 14:42 04/03/19 14:42 04/03/19 14:42 04/03/19 14:42 Vital Signs Reviewed: Yes Diagnostics - Vital Signs Vital Signs Temp Pulse Resp BP Pulse Ox 04/03/19 14:42 98 F 84 16 154/93 98 - Laboratory Result Diagrams: 04/03/19 16:29 04/03/19 16:29 Lab Statement: Any lab studies that have been ordered have been reviewed, and results considered in the medical decision making process. - Radiology CHEST X-RAY Radiology Interpretation Completed By: Radiologist Summary of Radiographic Findings: IMPRESSION: #. Stigmata of obstructive lung disease. No acute pulmonary or cardiac process evident. THIS REPORT WAS REVIEWED BY DR. BRADLEY. - EKG 1605 Cardiac Rate: NL - rate of 72 BPM EKG Rhythm: Sinus Rhythm Summary of EKG Findings: EKG showed sinus rhythm with rate of 72 BPM, no STEMI 1825 Cardiac Rate: NL - rate of 82 BPM EKG Rhythm: Sinus Rhythm Summary of EKG Findings: EKG showed sinus rhythm with rate of 85 BPM, no STEMI 1950 Cardiac Rate: NL - rate of 72 BPM EKG Rhythm: Sinus Rhythm Summary of EKG Findings: EKG showed sinus rhythm with rate of 72 BPM, no STEMI Re-Evaluation - Re-Evaluation First Eval Re-Evaluation Time: 18:18 Change: Worse Comment: Patient reports she is experiencing midsternal chest pain, repeat EKG and nitro SL to be given. Patient to be admitted. Complex Multi-Symp Course/Dx Course Of Treatment: Patient is a 64 y/o F presenting to ED with complaints of dizziness, high BP, and chest pain. Patient had an episode of chest pain two days ago. Chest pain at the time is described as a pressure. Today, around noon , patient had room-spinning dizziness and felt near syncopal. Patient states that she was unsteady on her feet, and went to her car. She felt somewhat better at the time. However, later she felt nauseous and "wozzy". Patient also reports experiencing intermittent left shoulder pain that onset this past weekend after she had been pruning shrubbery. She went to her osteopathic doctor , Dr. Castillo, today for lymphatic drainage. In the past few times she has been there, she has had high BP measurements, same today. Systolic BP was [address] Castillo' office. Patient was advised to come to ED for evaluation. Hx of panic attacks is noted. Patient notes that she served divorce papers to her partner this morning. She states this was stressful but congenial; the two have been for years. SI is denied. PMHx of HTN. No Hx of diabetes, HLD. FMHx of cardiac disease is denied. Patient is a current smoker, drinks beer daily, states that she does not go through withdrawals. Physical exam is unremarkable. CXR IMPRESSION: #. Stigmata of obstructive lung disease. No acute pulmonary or cardiac process evident. Labs showed MCH 32, MPV 6.4, creatinine 0.97. TSH 1.22 , T4 8.26. First and second trop were negative. EKG showed sinus rhythm with rate of 72 BPM, no STEMI. During ED course, patient received nitro 1 inch TOPICAL and ASA 324 mg PO. During ED stay, Patient reported she is experiencing midsternal chest pain, repeat EKG and nitro SL to be given. Patient was given nitro 0.4 mg SL. Patient's case was discussed with Dr. Carias , Dr. Carias accepts for admission at 181. Patient is agreeable with admission. Third EKG showed sinus rhythm with rate of 72 BPM, no STEMI - Diagnoses Provider Diagnoses: Chest pain, HTN (hypertension) - Physician Notifications Discussed Care Of Patient With: Elsi Carias Time Discussed With Above Provider: 18:19 Instructed by Provider To: Other - Patient's case was discussed with Dr. Carias , Dr. Carias accepts for admission at 181. Patient is agreeable with admission. Discharge - Sign-Out/Discharge Documenting (check all that apply): Patient Departure - admit Patient Received Moderate/Deep Sedation with Procedure: No - Discharge Plan Condition: Good Disposition: ADMITTED TO [facility] Referrals: Salud Sapp MD [Primary Care Provider] - - Attestation Statements Document Initiated by Scribe: Yes Documenting Scribe: JOAN CASTAÑEDA Provider For Whom Scribe is Documenting (Include Credential): LJ BRADLEY MD Scribe Attestation: JOAN Burroughs, scribed for LJ BRADLEY MD on 04/03/19 at 2005. Status of Scribe Document: Ready
[2019-04-03] MEDS ORDERED: Aspirin 81 mg CHEW TAB* 81 MG TAB.CHEW PO ONE (16:20)
[2019-04-03 16:35] LABS: ABS Eosinophils 0.1 10^3/ul (0-0.6); ABS Lymphocytes 1.7 10^3/ul (1.0-4.8); ABS Monocytes 0.7 10^3/ul (0-0.8); ABS Neutrophils 3.7 10^3/ul (1.5-7.7); Eosinophil % 1.8 %; Hematocrit 41 % (35-47); Lymphocyte % 26.6 %; Mean Corpuscular HGB Conc 35 g/dL (31-36); Mean Corpuscular Hemoglobin 32 pg (27-31); Mean Corpuscular Volume 91 fL (80-97); Mean Platelet Volume 6.4 fL (7.4-10.4); Platelet Count 285 10^3/uL (150-450); Red Blood Count 4.46 10^6 /uL (3.70-4.87); Red Cell Distribution Width 14 % (10-15); White Blood Count 6.3 10^3/uL (3.5-10.8)
[2019-04-03 16:56] LABS: Albumin 4.4 g/dL (3.2-5.2); Potassium 3.7 mmol/L (3.5-5.0); Total Bilirubin 0.5 mg/dL (0.2-1.0)
[2019-04-03 17:02] LABS: Albumin/Globulin Ratio 1.5 (1-3); BUN/Creatinine Ratio 13.4 (8-20); EGFR African American 70.4 (>60); EGFR Non-African American 58.2 (>60); Globulin 2.9 g/dL (2-4); Total Protein 7.3 g/dL (6.4-8.9)
[2019-04-03 17:19] LABS: T4, Total 8.26 mcg/dL (6.09-12.23)
[2019-04-03 17:23] LABS: TSH (Thyroid Stimulating Horm) 1.22 mcIU/mL (0.34-5.60)
[2019-04-03] MEDS ORDERED: Nitroglycerin TAB 0.4 MG* 0.4 MG TAB ONE (18:18)
[2019-04-03] MEDS: Nitroglycerin TAB 0.4 MG* 0.4 MG TAB SL ONE ×3 (18:20→18:39)
[2019-04-03] MEDS ORDERED: Nitro 2% OINT* (Nitroglycerin) 1 INCH/PAK PAK TOPICAL ONE (18:59)
[2019-04-03] MEDS ORDERED: ALPRAZolam TAB* 0.25 MG PO PRN (19:36)
[2019-04-03] MEDS ORDERED: Cetirizine* 10 MG TAB PO PRN (19:36)
[2019-04-03] MEDS ORDERED: Fluticasone NASAL SPRAY 50MCG* 16 gm SPRAY BTL BOTH NARES PRN (19:36)
[2019-04-03] MEDS ORDERED: Mometasone 220 MCG MDI INH PRN (19:36)
[2019-04-03] MEDS ORDERED: Albuterol HFA INHALER* 8 gm MDI INH PRN (19:36)
[2019-04-03] MEDS: Pantoprazole TAB * 40 MG TAB PO SCH (21:20)
[2019-04-03] MEDS: Acetaminophen TAB* 325 MG PO PRN (21:20)
[2019-04-03] MEDS: Heparin VIAL(*) 5000 UNITS/ML VIAL (FIVE THOUSAND) SUBCUT SCH (21:20)
--- NOTE | 2019-04-03 21:52 | HP ---
CC: Dr. Sapp * HISTORY AND PHYSICAL: DATE OF ADMISSION: 04/03/19 PRIMARY CARE PROVIDER: Dr. Sapp. ATTENDING PHYSICIAN: Dr. Carias * (dictated by Viry Pathak NP). CHIEF COMPLAINT: 1. Chest pain. 2. Dizziness. 3. Shoulder pain. HISTORY OF PRESENT ILLNESS: Ms. Villanueva is a 64-year-old female with a past medical history significant for panic attack, hypertension, sleep apnea, GERD, IBS, chronic fatigue, microscopic colitis, who presented to the emergency department today at the instruction of her osteopathic doctor due to concerns for elevated blood pressure and chest pain. The patient reports that today she went to see her therapist at about 12 o'clock. She had a sudden onset of dizziness and wooziness after using the bathroom. She reports these symptoms lasted about 1 minute. There were no aggravating or alleviating symptoms. They improved on their own. About an hour later, she was shopping in [place] and had some nausea, which was transient and resolved on its own. She mentions that on Sunday of this week, she was standing outside and felt chest pain that lasted about 15 minutes. She reports the chest pain felt like pressure and "boulder into my chest." She reports the pain got worse with deep breath. She denies any associated symptoms such as nausea, vomiting, diaphoresis, palpitations, dizziness. She reports that the symptom also resolved on its own. While at her provider's office today, she was noted to have elevated blood pressure of 190/110. She reports the last week at the same provider's office, she had elevated blood pressure of 180/110. Given these results and the recent chest pain and dizziness, the provider encouraged the patient to come to the emergency room for further evaluation. It should also be reported that the patient complains of left arm pain, but she attributes this to using loppers to trim her hedges. Reports increasing with movement. While in the emergency department, the patient had a chest x-ray, which revealed stigmata of obstructive lung disease. The patient had an EKG, which is unremarkable. The patient had labs including a CBC, which is fairly unremarkable and a BMP, which revealed an elevated creatinine at 0.97. The patient has had 2 troponins, initial troponin 0.00 and repeat troponin 0.00. The patient has another scheduled troponin for 2154. The patient reports while sitting in the emergency room, she has had a repeat episode of the chest pressure that lasted only a few moments and decreased without intervention. The patient also reports that while I was discussing admitting her, she felt anxious and had another repeat episode of the chest pressure. The patient will be admitted on telemetry. PAST MEDICAL HISTORY: 1. Panic attack. 2. Hypertension. 3. Sleep apnea. 4. GERD. 5. IBS. 6. Chronic fatigue. 7. Microscopic colitis. PAST SURGICAL HISTORY: 1. Right hip replacement. 2. Two C-sections. 3. Multiple surgeries for infertility. 4. [place] tooth extraction. 5. Cyst removed from behind ears. 6. Left hip replacement. 7. Hysteroscopy. 8. Laparoscopy. ALLERGIES: No known drug allergies. FAMILY HISTORY: Father has a history of skin cancer. Grandfather has a history of stroke. SOCIAL HISTORY: The patient reports 5 to 6 cigarettes daily. The patient reports 2 to 3 beers daily. The patient reports daily marijuana use. The patient owns her own business. The patient lives with her daughter. The patient is independent with her ADLs. The patient reports her surrogate decision maker will be her father, Shun Davis, [phone]. REVIEW OF SYSTEMS: A 14-point review of systems was performed and all pertinent positive and negative findings are in the HPI. All others were negative. PHYSICAL EXAMINATION GENERAL: Ms. Villanueva is a 64-year-old female, who is sitting on bed. She appears to be in no acute distress. She appears her stated age. VITAL SIGNS: Temp 98, HR 84, RR 12, O2 saturation 96% on room air, BP is 147/ 81. HEENT: EOMs intact. PERRLA. Oral mucosa is moist without lesions. Posterior pharynx is clear. NECK: Full range of motion. No lymphadenopathy. RESPIRATORY: Symmetrical chest expansion. No accessory muscle use. Lungs are clear to auscultation. No rhonchi, wheezes, or rales. CV: Regular rate and rhythm. S1, S2 present. No murmurs, rubs, or gallops. EXTREMITIES: Skin is warm and smooth bilaterally. No edema. No clubbing or cyanosis. MUSCULOSKELETAL: Full range of motion. No pain or deformities. ABDOMEN: Soft, nontender. Bowel sounds are normoactive. NEUROLOGIC: Awake, alert, and oriented x4. Motor strength is 5/5 in the upper and lower extremities. Coordination intact. Cranial nerves II through XII grossly intact. SKIN: Grossly intact without lesions. LABORATORY DATA: WBC 6.3, hemoglobin 14, hematocrit 41, platelets 285. Sodium 137, potassium 3.7, chloride 101, BUN 13, creatinine 0.97. ASSESSMENT AND PLAN: Ms. Villanueva is a 64-year-old female with a past medical history significant for panic attack, hypertension, sleep apnea, gastroesophageal reflux disease, irritable bowel syndrome, chronic fatigue, microscopic colitis, who presented to the emergency department today with complaints of dizziness and chest pain. She will be admitted to OB. 1. Chest pain: As mentioned above, the patient's EKG was unremarkable. We will repeat this in the morning. The patient's initial 2 troponins have been negative at 0.00. The patient will get a third troponin this evening. The patient will be placed on telemetry. The patient will have nitro p.r.n. The patient will have an exercise stress test and echocardiogram tomorrow. 2. Dizziness: The patient has not had any dizziness while here in the emergency room. I suspect that this could be benign proximal vertigo and/or related to hypertension. We will continue to monitor the patient. The patient reports she also recently had an MRI given her history of concussions and tingling on the side of her face since August. If the patient's dizziness reoccurs, I would recommend a Neurology consult. 3. Panic attacks: The patient has a history of panic attacks. We will resume her benzodiazepine p.r.n. 4. Hypertension: The patient has a history of hypertension and is mildly hypertensive here in the emergency department. I will continue the patient's HCTZ. I would recommend adding another agent if she continues to be hypertensive. 5. Sleep apnea: The patient will be ordered a CPAP. 6. Gastroesophageal reflux disease: We will continue the patient's PPI. 7. Irritable bowel syndrome: We will continue the patient's PPI. We will monitor her for symptoms. 8. Microscopic colitis: The patient was recently diagnosed with microscopic colitis via colonoscopy and was on steroids. The patient reports her last dose was Sunday or Sunday. The patient reports she did have a taper. 9. FEN: The patient will be on heart-healthy diet and no caffeine. The patient will be n.p.o. after midnight. 10. Code status: The patient is a full code. 11. DVT prophylaxis: Based on the DVT risk assessment, the patient is high risk. I have ordered subcu heparin. TIME SPENT: Approximately 65 minutes was spent on this admission, greater than half the time was spent with the patient and caregiver obtaining my history, performing my physical exam, and reviewing my plan of care. This case has been reviewed with my attending, Dr. Carias, who is in agreement with my plan of care. Reviewed by VIRY PATHAK NP 04/05/19 @ 1827 [id number]/CPS #: [id number] MTDD
[2019-04-04] MEDS: Acetaminophen TAB* 325 MG PO PRN ×2 (04:00→09:03)
[2019-04-04] MEDS: Heparin VIAL(*) 5000 UNITS/ML VIAL (FIVE THOUSAND) SUBCUT SCH ×2 (05:07→14:59)
[2019-04-04 06:43] LABS: ABS Eosinophils 0.1 10^3/ul (0-0.6); ABS Lymphocytes 1.5 10^3/ul (1.0-4.8); ABS Monocytes 0.6 10^3/ul (0-0.8); Eosinophil % 2.2 %; Hematocrit 39 % (35-47); Lymphocyte % 24.2 %; Mean Corpuscular HGB Conc 34 g/dL (31-36); Mean Corpuscular Hemoglobin 31 pg (27-31); Mean Corpuscular Volume 92 fL (80-97); Mean Platelet Volume 6.6 fL (7.4-10.4); Platelet Count 237 10^3/uL (150-450); Red Blood Count 4.23 10^6 /uL (3.70-4.87); Red Cell Distribution Width 13 % (10-15); White Blood Count 6.3 10^3/uL (3.5-10.8)
[2019-04-04 06:59] LABS: Albumin/Globulin Ratio 1.6 (1-3); BUN/Creatinine Ratio 13.1 (8-20); Calcium 9.4 mg/dL (8.6-10.3); EGFR African American 68.8 (>60); EGFR Non-African American 56.8 (>60); Globulin 2.5 g/dL (2-4); HDL Cholesterol 72.6 mg/dL; Potassium 3.6 mmol/L (3.5-5.0); Total Bilirubin 0.5 mg/dL (0.2-1.0); Total Protein 6.5 g/dL (6.4-8.9)
[2019-04-04] MEDS: Pantoprazole TAB * 40 MG TAB PO SCH (08:49)
[2019-04-04] MEDS ORDERED: Hydrochlorothiazide TAB* 25 MG PO SCH (09:00)
[2019-04-04] MEDS ORDERED: Magnesium Oxide TAB* 400 MG PO SCH (09:00)
[2019-04-04] MEDS ORDERED: BuPROPion XL* 300 MG TAB.XL PO SCH (09:00)
[2019-04-04] MEDS ORDERED: FLUoxetine CAP* 20 MG PO SCH (09:00)
--- NOTE | 2019-04-04 13:27 | ECHO ---
*[facility]* [place] [address] Fax #: [phone] Transthoracic Echocardiogram Patient: Rich, Height: 63 in / 160 Berhane taylor : 1955 Weight: 155.7 lb / Study Date: 04/04/2019 70.8 kg Age: 64 BP: 106 / 68 Gender: F BMI/BSA: 27.6 kg/m^2 HR: 86 bpm / 1.79 m^2 *Associate Programmer Analyst: * Nadine Newsome RD *Referring Physician: * Viry Sepulveda *Reading Physician: * Konstantin Wahl MD Indications: Chest Pain, unspecified. Dizziness. History: Chest pain. Risk factors: Current tobacco use. Hypertension. Conclusions Summary: 1. Left ventricle: The cavity size is normal. Wall thickness is normal. Systolic function is normal. The estimated ejection fraction is 55-60%. No obvious segmental wall motion abnormalities noted on fair quality study. 2. Right ventricle: The cavity size is normal. Wall thickness is normal. Systolic function is normal. 3. Left atrium: The atrium is normal in size. 4. No more than mild valvular regurgitation noted. 5. Normal estimated pulmonary artery systolic pressure Recommendations: None prior for comparison at time of interpretation Study data: Transthoracic echocardiogram. Procedure: Transthoracic echocardiography was performed. Image quality was good. Complete 2D, spectral Doppler, and color flow Doppler. Patient status: Inpatient. Patient room number: 447-2. Rhythm: Normal sinus rhythm. Findings Left ventricle: The cavity size is normal. Wall thickness is normal. Systolic function is normal. The estimated ejection fraction is 55-60%. Left ventricular diastolic function parameters are normal for the patient's age. Right ventricle: Well visualized. The cavity size is normal. Wall thickness is normal. Systolic function is normal. Ventricular septum: Well visualized. Left atrium: Well visualized. The atrium is normal in size. Right atrium: Well visualized. The atrium is normal in size. Mitral valve: Well visualized. The leaflets are mildly thickened. There is no evidence of stenosis. There is mild regurgitation. Aortic valve: Well visualized. The valve is trileaflet. The leaflets are normal thickness. There is no evidence of stenosis. There is mild regurgitation. Tricuspid valve: Well visualized. The leaflets are normal thickness. There is no evidence of stenosis. There is physiologic regurgitation. Pulmonic valve: Well visualized. The leaflets are normal thickness. There is no evidence of stenosis. There is physiologic regurgitation. Aorta: The aorta is well visualized and normal size. Aortic arch: The aortic arch is appears normal. The aortic root is not dilated. Pericardium: There is no significant pericardial effusion. Pulmonary arteries: Not well visualized. Systemic veins: Not well visualized. Measurements Left ventricle Value Ref Aortic valve Value Ref ISABELA, LAX 3.9 cm 3.8 - Peak v, S 1.06 m/sec ---- 5.2 VTI, S 23.1 cm ---- ESD, LAX 2.5 cm 2.2 - Mean grad, S 2.8 mm Hg ---- 3.5 Peak grad, S 4.5 mm Hg ---- FS, LAX 37 % 27 - 45 LVOT/AV, VTI ratio 0.64 ---- PW, ED, LAX 0.6 cm 0.6 - AR peak v 2.75 m/sec ---- 0.9 AR decel time 1577 ms ---- FS 37 % 27 - 45 AR PHT 457 ms ---- Mid-wall FS 17 % -------- AR peak grad 30 mm Hg ---- PW, ED 0.6 cm 0.6 - 0.9 Mitral valve Value Ref PW/ID, ED 0.17 -------- Peak E 0.62 m/sec ---- E', lat melita, TDI (L) 6.2 cm/sec >=10.0 Peak A 0.96 m/sec --- - E/e', lat melita, TDI 10 -------- Decel time 161 ms ---- Peak E/A ratio 0.64 ---- LVOT Value Ref Peak annmarie, S 0.73 m/sec -------- Pulmonic valve Value Ref VTI, S 14.8 cm -------- Peak v, S 0.84 m/sec ---- Peak grad, S 2 mm Hg -------- Peak grad, S 2.8 mm Hg ---- Mean grad, S 1 mm Hg -------- Aortic root Value Ref Ventricular septum Value Ref Root diam 2.2 cm <4.0 IVS, ED 0.9 cm 0.6 - 0.9 Ascending aorta Value Ref AAo AP diam, S 3.0 cm ---- Right ventricle Value Ref AAo AP diam/bsa, S 1.7 cm/m^2 ---- ISABELA, LAX 2.3 cm -------- ISABELA major ax, A4C (L) 3.1 cm 5.9 - Aortic arch Value Ref 8.3 Arch diam 2.5 cm ---- Left atrium Value Ref Decending aorta Value Ref LA ID 2.8 cm -------- Jimmie peak annmarie 0.43 m/sec ---- SI dim ES, LAX 2.8 cm -------- ML dim, A4C 3.2 cm -------- SI dim, A4C 3.4 cm -------- Vol, ES, 2-p 40 ml -------- Vol/bsa, ES, 2-p 22 ml/m^2 16 - 34 Right atrium Value Ref SI dim, ES 3.5 cm 3.4 - 5.3 ML dim, ES, A4C 2.9 cm 2.6 - 4.4 SI dim, ES, A4C 3.5 cm 3.4 - 5.3 SI dim/bsa, ES, 1.9 cm/m^2 1.9 - A4C 3.1 Legend: (L) and (H) teja values outside specified reference range. Prepared and electronically signed by Konstantin Wahl MD 04/04/2019 13:27
--- NOTE | 2019-04-04 15:02 | CONSULT ---
Subjective Date of Service: 04/04/19 Interval History: Admission Date: 04/03/19 Consult date 04/04/2019 Service: Hospitalist PCP: Meri Golden NP CC: Chest pain Reason for consult: Same, ? abnormal stress test HISTORY OF PRESENT ILLNESS: Ms. Villanueva is a 64-year-old woman with a PMHx as below. She served her with divorce papers yesterday. She was at her osteopath's office and her BP was elevated at 190/110 mmHg and she was having chest discomfort. She also had dizziness and nausea earlier that day. The discomfort feels like central chest pressure. She presented to the ER. She ruled out for ACS. She had a stress nuclear which I reviewed. She had chest discomfort before, during and after the treadmill. She went 5 minutes. The was no ischemic ekg changes. The BP juan appropriately. I reviewed the nuclear imaging. The perfusion was normal at rest and with stress. The cine stress image showed normal LV systolic function. The TID index was calculated as elevated. In light of her treadmill this would not be suggestive of multivessel CAD. It was a normal stress tst. PAST MEDICAL HISTORY: 1. Anxiety/Panic attack. 2. Hypertension. 3. Sleep apnea. 4. GERD. 5. IBS. 6. Chronic fatigue. 7. Microscopic colitis. PAST SURGICAL HISTORY: 1. Right hip replacement. 2. Two C-sections. 3. Multiple surgeries for infertility. 4. [place] tooth extraction. 5. Cyst removed from behind ears. 6. Left hip replacement. 7. Hysteroscopy. 8. Laparoscopy. ALLERGIES: No known drug allergies. FAMILY HISTORY: Father has a history of skin cancer. Grandfather has a history of stroke. SOCIAL HISTORY: The patient reports 5 to 6 cigarettes daily. The patient reports 2 to 3 beers daily. The patient reports daily marijuana use. The patient owns her own business. The patient lives with her daughter. The patient is independent with her ADLs. The patient reports her surrogate decision maker will be her father, Shun Davis, [phone]. Medications Active Medications: Acetaminophen (Tylenol Tab*) 650 mg PO Q4H PRN PRN Reason: FEVER/PAIN Last Admin: 04/04/19 09:03 Dose: 650 mg Albuterol (Ventolin Hfa Inhaler*) 2 puff INH Q4HR PRN PRN Reason: SOB/WHEEZING Alprazolam (Xanax Tab*) 0.25 mg PO TID PRN PRN Reason: ANXIETY Bupropion HCl (Bupropion Xl*) 300 mg PO DAILY [facility] Last Admin: 04/04/19 08:49 Dose: 300 mg Cetirizine HCl (Zyrtec*) 10 mg PO DAILY PRN PRN Reason: Allergy Symptoms Fluoxetine HCl (Prozac Cap*) 60 mg PO DAILY [facility] Last Admin: 04/04/19 08:49 Dose: 60 mg Fluticasone Propionate (Flonase Nasal [place] 50mcg*) 1 spray BOTH NARES DAILY PRN PRN Reason: CONGESTION Heparin Sodium (Porcine) (Heparin Vial(*)) 5,000 units SUBCUT Q8HR [facility] Last Admin: 04/04/19 05:07 Dose: 5,000 units Hydrochlorothiazide (Hydrodiuril Tab*) 25 mg PO DAILY [facility] Last Admin: 04/04/19 08:49 Dose: 25 mg Magnesium Oxide (Magox 400 Tab*) 400 mg PO DAILY [facility] Last Admin: 04/04/19 08:49 Dose: 400 mg Mometasone Furoate (Asmanex 220 Mcg Mdi *) 2 puff INH DAILY PRN PRN Reason: SHORTNESS OF BREATH Pantoprazole Sodium (Protonix Tab*) 40 mg PO BID [facility] Last Admin: 04/04/19 08:49 Dose: 40 mg Home Medications: Hydrochlorothiazide TAB* [Hydrodiuril TAB*] 25 mg PO DAILY 10/29/12 [History Confirmed 04/03/19] BuPROPion XL* [Bupropion XL*] 300 mg PO DAILY 02/01/18 [History Confirmed ] ALPRAZolam [Alprazolam Odt] 0.25 mg PO TID PRN 01/31/19 [History Confirmed 04/03] Albuterol inh POWDER (NF) [Proair Respiclick] 2 puff INH Q4HR PRN 01/31/19 [ History Confirmed 04/03/19] Fluoxetine HCl [Fluoxetine Hydrochloride] 60 mg PO DAILY 01/31/19 [History Confirmed 04/03/19] Fluticasone HFA 110 mcg(NF) [Flovent HFA 110 mcg(NF)] 2 puff INH BID PRN [History Confirmed 04/03/19] Mometasone NASAL (NF) [Nasonex (NF)] 1 spray BOTH NARES DAILY PRN 01/31/19 [ History Confirmed 04/03/19] LevoCETirizine TAB (NF) [Xyzal TAB (NF)] 5 mg PO DAILY PRN 04/03/19 [History Confirmed 04/03/19] Magnesium Oxide [Magnesium] 500 mg PO DAILY 04/03/19 [History Confirmed 04/03/19 ] Omeprazole CAP (NF) [Prilosec CAP* 20 MG] 20 mg PO BID 04/03/19 [History Confirmed 04/03/19] Review of Systems - Measurements Intake and Output: Intake and Output Last 24 Hours 04/02/19 04/03/19 04/04/19 04/05/19 06:59 06:59 06:59 06:59 Intake Total 0 Balance 0 Weight 156 lb 1.6 oz Intake: Oral 0 - Review of Systems Constitutional Symptoms: Negative: Weight Gain, Weight Loss, Weakness, Fatigue, Fever, Night Sweats Dermatology: Negative: Rash, Skin Lesions HEENT: Negative: Change in Hearing, Vertigo Eyes: Negative: Glaucoma, Cataracts Thyroid: Negative: Palpitations, Weight Loss, Weight Gain Pulmonary: Negative: Cough, Sputum, Hemoptysis, Wheezing, Respiratory Distress, Shortness of Breath Cardiology: Positive: Chest Pain Negative: Shortness of Breath, Palpitations, Swelling of Ankles, Peripheral Vascular Dis, Edema, Syncope, Claudication, Paroxysmal Nocturnal Dyspnea, Orthopnea Gastroenterology: Negative: Vomiting, Anorexia, Blood in Stools, Change in Bowel Habits, Haematemesis, Melena Genital - Urinary: Negative: Dysuria, Hematuria Musculoskeletal: Negative: Joint Pain, Joint Stiffness Endocrinology: Negative: Obesity, Diabetes, Polydipsia, Polyuria Hematologic/Lymphatic: Negative: Use of Anticoagulant, Use of Antiplatelet Drugs Neurology: Negative: Diplopia, Dizziness, Change in Speech, Change in Sphincter Function , Change in Walking, Hx of Stroke\TIA, Hx Seizures Psychiatry: Positive: Anxiety, Unusual Anxiety Allergic/Immunologic: Negative: Hx HIV, Immunocompromise Review of Systems Statement: All other review of systems negative, unless stated above. Objective Vital Signs: Temp Pulse Resp BP Pulse Ox 97.8 F 74 20 135/82 98 04/04/19 12:44 04/04/19 12:44 04/04/19 12:44 04/04/19 12:44 04/04/19 12:44 Oxygen Devices in Use Now: None Appearance: nad, pleasant Ears/Nose/Mouth/Throat: Clear Oropharnyx, Mucous Membranes Moist Neck: NL Appearance and Movements; NL JVP, Trachea Midline Respiratory: Symmetrical Chest Expansion and Respiratory Effort, Clear to Auscultation Cardiovascular: NL Sounds; No Murmurs; No JVD, RRR, No Edema Abdominal: NL Sounds; No Tenderness; No Distention Extremities: No Edema Skin: No Rash or Ulcers Neurological: Alert and Oriented x 3 Laboratory Results: 04/04/19 06:36 04/04/19 06:36 Total Bilirubin 0.50 mg/dL (0.2-1.0) 04/04/19 06:36 AST 15 U/L (13-39) 04/04/19 06:36 ALT 12 U/L (7-52) 04/04/19 06:36 Alkaline Phosphatase 60 U/L (34-104) 04/04/19 06:36 Total Protein 6.5 g/dL (6.4-8.9) 04/04/19 06:36 Albumin 4.0 g/dL (3.2-5.2) 04/04/19 06:36 Globulin 2.5 g/dL (2-4) 04/04/19 06:36 Albumin/Globulin Ratio 1.6 (1-3) 04/04/19 06:36 Triglycerides 45 mg/dL 04/04/19 06:36 Cholesterol 202 mg/dL 04/04/19 06:36 LDL Cholesterol 120 mg/dL 04/04/19 06:36 HDL Cholesterol 72.6 mg/dL 04/04/19 06:36 TSH 1.22 mcIU/mL (0.34-5.60) 04/03/19 16:29 04/03/19 04/03/19 04/03/19 16:29 19:02 21:31 Troponin I 0.00 0.00 0.00 Diagnostic Imaging: Study Date: 04/04/2019 TTE Conclusions Summary: 1. Left ventricle: The cavity size is normal. Wall thickness is normal. Systolic function is normal. The estimated ejection fraction is 55-60%. No obvious segmental wall motion abnormalities noted on fair quality study. 2. Right ventricle: The cavity size is normal. Wall thickness is normal. Systolic function is normal. 3. Left atrium: The atrium is normal in size. 4. No more than mild valvular regurgitation noted. 5. Normal estimated pulmonary artery systolic pressure Exam Date: 04/03/19 Indication: Chest pain, dizziness. History of tobacco use. IMPRESSION: #. Stigmata of obstructive lung disease. No acute pulmonary or cardiac process evident. EKG Data: ekg 04/03/2019 x 2: NSR, normal ekg Assessment/Plan Patients symptoms were likely related to anxiety in the setting of increased psychosocial stress. I strongly encouraged her to quit smoking to reduce the risk of CV events and . Her 10 year acc/aha event risk is 8.9%. I recommend starting atorvastatin 20 mg daily for primary prevention and follow up with her PCP's office for further evaluation and management.
[2019-04-04 15:54] VITALS: BP 133/80
--- NOTE | 2019-04-05 11:51 | DS ---
CC: Dr. Sapp * DISCHARGE SUMMARY: DATE OF ADMISSION: 04/03/19 DATE OF DISCHARGE: 04/04/19 PRIMARY CARE PHYSICIAN: Dr. Sapp. ATTENDING PHYSICIAN: Dr. Elsi Carias * (dictated by Edita Ruano NP). PRIMARY DIAGNOSIS: Chest pain, atypical. SECONDARY DIAGNOSES: 1. History of panic attacks. 2. Hypertension. 3. Sleep apnea with gastroesophageal reflux disease. 4. Irritable bowel syndrome. 5. Chronic fatigue. 6. Microscopic colitis. PAST SURGICAL HISTORY: 1. Right hip replacement. 2. Two C sections. 3. Multiple surgeries for infertility. 4. [place] tooth extraction. 5. Cyst removed from behind ears. 6. Left hip replacement. 7. Hysteroscopy. 8. Laparoscopy. MEDICATIONS AT THE TIME OF DISCHARGE: 1. Albuterol inhaler p.r.n. 2. Alprazolam 0.25 mg p.o. t.i.d. p.r.n. 3. Fluticasone nasal spray 2 puffs inhaled b.i.d. p.r.n. 4. Fluoxetine 60 mg p.o. daily. 5. Bupropion XL 300 mg p.o. daily. 6. Mometasone nasal spray, 1 spray both nares daily p.r.n. 7. Levocetirizine 5 mg p.o. daily p.r.n. 8. Hydrochlorothiazide 25 mg p.o. daily. 9. Omeprazole 20 mg p.o. b.i.d. 10. Magnesium oxide 500 mg p.o. daily. HOSPITAL COURSE: Ms. Villanueva is a 64-year-old female who presented to the emergency room on 04/03/19 with concern for chest pain, dizziness, and shoulder pain. Please see the dictated H and P from Viry Sepulveda NP for complete details. In brief, the patient states that she was on an osteopathic doctor's appointment when she was noted to have elevated blood pressure and complained of chest pain. She also had some dizziness and wooziness. Later, she reported that she had filed for divorce from her same day. She has a history of panic attacks but felt like these symptoms were not consistent with her previous history of panic attack. She also had a previous episode of chest pain in the prior week. This felt "like a boulder into her chest." In the emergency room, the patient had a chest x-ray, which revealed stigmata of obstructive lung disease. She had an EKG, which was unremarkable. Her other labs were unremarkable. She had 2 troponins, which were 0.00 and 0.00. She continued to complain of chest discomfort and therefore placed on observation status in the hospital to rule out acute coronary syndrome. Ms. Villanueva had a third troponin, which was also 0. She went on to have a transthoracic echocardiogram and showed an intact ejection fraction with no significant wall motion or valvular abnormalities. She went on for a nuclear medicine stress test, which is read as follows: Abnormally elevated transient ischemic dilatation ratio of 1.39 suggesting the possibility of multivessel coronary artery disease, slightly decreased left ventricular ejection fraction noted to be 52% interpreted as high risk by Radiology. For this reason, she was seen in consultation by Dr. Konstantin Wahl from Cardiology and I refer you to his note for complete details, but he states that he reviewed the stress nuclear test. There were no ischemic EKG changes. The blood pressure juan appropriately. He reviewed the nuclear imaging, which showed the perfusion was normal at rest and with stress. The cine stress image showed normal LV systolic function and an TID index was calculated as elevated, but he states in light of her treadmill this would not be suggestive of multivessel CAD and he is calling it a normal stress test. He summarized that her symptoms are related to anxiety in the setting of psychosocial distress and recommended starting atorvastatin 20 mg for primary prevention and to follow up with her primary care physician. Ms. Villanueva is medically stable for discharge to home. She will be following up with primary care physician, Dr. Sapp. DISPOSITION: To home. DIET: Low fat, low sat. ACTIVITY: As tolerated. FOLLOWUP PLANS: Please follow up with Dr. Sapp within the next week regarding this observation stay in the hospital. TIME SPENT: Approximately 60 minutes was spent in the discharge of this patient , more than half the time was spent with her at the bedside reviewing the events leading up to and during this hospitalization, performing the physical examination, and reviewing my plan of care. EDITA RUANO NP [id number]/[facility] #: [id number] SHAHRIAR
== END 2019-04-04 18:30 | disposition home or self-care (01) ==
LOC: ED 14:38 → MEDTELE 19:31
PROVIDERS: ADMIT Hospitalist; ATTEND Hospitalist
DX: R07.89 Other chest pain (principal); F41.0 Panic disorder [episodic paroxysmal anxiety]; I10 Essential (primary) hypertension; K21.9 Gastro-esophageal reflux disease without esophagitis; G47.30 Sleep apnea, unspecified; K58.9 Irritable bowel syndrome, unspecified; R53.82 Chronic fatigue, unspecified; Z79.899 Other long term (current) drug therapy; Z96.643 Presence of artificial hip joint, bilateral; R42 Dizziness and giddiness; F17.210 Nicotine dependence, cigarettes, uncomplicated
CPT/HCPCS: 36415; 71045; 78452; 80053; 80061; 83605; 84436; 84443; 84484; 85025; 93005; 93017; 93306; 96372; 99285; A9270-GY; A9502; G0378; J1644

== ENCOUNTER 2019-12-28 18:37 | Emergency (ER) | payer OTHER ==
[2019-12-28 18:56] LABS: ABS Eosinophils 0.2 10^3/ul (0-0.6); ABS Lymphocytes 1.1 10^3/ul (1.0-4.8); ABS Monocytes 0.7 10^3/ul (0-0.8); Eosinophil % 3.2 %; Hematocrit 38 % (35-47); Hemoglobin 13.6 g/dL (12.0-16.0); Lymphocyte % 22.1 %; Mean Corpuscular HGB Conc 36 g/dL (31-36); Mean Corpuscular Hemoglobin 33 pg (27-31); Mean Corpuscular Volume 90 fL (80-97); Mean Platelet Volume 6.9 fL (7.4-10.4); Platelet Count 232 10^3/uL (150-450); Red Blood Count 4.16 10^6 /uL (3.70-4.87); Red Cell Distribution Width 13 % (10-15)
[2019-12-28] MEDS ORDERED: NS 0.9% 1000 ML** 1,000 ML IV ONE (18:59)
[2019-12-28] MEDS ORDERED: LORazepam TAB(*) 1 MG PO ONE (18:59)
--- OUTSIDE RECORDS SUMMARY | 2019-12-28 18:59 | XMS REPORT | Continuity of Care Document ---
:1955 External Reference #:[id number] Author Name Everton Monet MD (transmitted by agent of provider Christiane Cleaning) Address [address] [place] [id number] Care Team Providers Name Role Phone Meri Golden NP - Family Care Team Information Flatbed Truck Driver [phone] Nelsy Pérez MD - Internal Medicine Care Team Information Flatbed Truck Driver [phone] Problems Active Problems Provider Date Essential hypertension Meri Golden N.P. Onset: 09/03/2015 Anxiety state Nelsy Pérez M.D., FACP Onset: 09/28/2010 Depressive disorder Nelsy Pérez M.D., FACP Onset: 09/28/2010 Chronic fatigue syndrome Nelsy Pérez M.D., FACP Onset: 09/28/2010 Temporomandibular joint disorder Nelsy Pérez M.D., FACP Onset: 10/12/2010 Gastroesophageal reflux disease Meri Golden, N.P. Onset: 06/24/2012 Obstructive sleep apnea of adult Lee Ann Weeks DNP, RN, Onset: 10/16/2014 [facility] Abnormal results function studies of Jazmine Aberu MD Onset: 11/17/2015 central nervous system Postconcussion syndrome Jazmine Abreu MD Onset: 11/28/2016 Headache Jazmine Abreu MD Onset: 09/25/2017 Collagenous colitis Meri Golden N.P. Onset: 02/06/2019 Dizziness and giddiness Rajat Rojas M.D. Onset: 02/21/2019 Social History Type Date Description Comments Sex Unknown ETOH Use Currently consumes 3 beers per day alcohol Tobacco Use Start: Unknown Patient is a current 2 - 3 cigarettes per smoker, smokes every day day Recreational Drug Use Current Drug User Smokes marijuana 3 - 4 times weekly Smoking Status Reviewed: 11/07/19 Patient is a current 2 - 3 cigarettes per smoker, smokes every day day Exercise Type/Frequency Does not exercise Allergies, Adverse Reactions, Alerts Active Allergies Reaction Severity Comments Date No Known Drug Allergy 07/07/2010 Medications Active Medications SIG Qnty Indications Ordering Date Provider Prednisone take 3 tabs by 60tabs M75.50 Everton Monet, 5mg Tablets mouth daily for MD 9 3 days, take 2 tabs by mouth daily for 2 weeks, take 1 tab by mouth daily for 2 weeks Hydroxychloroquine take one tab by 180tabs M75.50 Everton Monet, Sulfate mouth daily for MD 9 200mg Tablets one week, then increase to one tab twice daily thereafter Bupropion Hydrochloride Take One Tablet 30tabs Meri Golden, ER (XL) By Mouth Once N.P. 9 300mg Tablets ER 24HR Daily Wellbutrin XL 300MG TB24 take one tablet 30units R10.12 Yony Simpson NP by mouth once 8 daily Levocetirizine 1 by mouth once 30tabs J30.9 [facility] Dihydrochloride daily as needed Kasey SappDMary Kay 8 5mg Tablets Fluoxetine HCL Take One Tablet 30tabs F33.9 Meri Golden, 60mg Tablets By Mouth Once N.P. 8 Daily Nasonex instill 1 spray 17units [facility] 50mcg/Act Suspension into each Cotton M.D. 6 nostril once daily as needed Flovent HFA 2 puffs twice 12gm J45.30 Yony Simpson NP 110mcg/Act Aerosol daily as needed 6 Proair HFA inhale 2 puffs 8.500gm 995.3 [facility] 108(90Base) mcg/Act by mouth every 4 Cotton, M.D. 5 Aerosol hours as needed Alprazolam dissolve 1 30tabs F32.9 Yony Simpson NP 0.25mg Tablets tablet on tongue 4 Dispers upto 3 times a day as needed for anxiety max of 3 per day Hydrochlorothiazide Take One Tablet 90tabs Meri [place], 25mg By Mouth Once N.P. 3 Tablets Daily Omeprazole take two 90caps Meri [place], 20mg Capsules DR capsules by N.P. 1 mouth once daily History Medications Amoxicillin/Clavulanate take one 20tabs J01.90 [facility], 08/14/2019 - Potassium tablet q12 [facility] CENTER ADMINISTRATOR 08/28/2019 875-125mg Tablets hours for 10 days Benzonatate one by mouth 30caps J20.9 Yony Tatiana, 08/14/2019 - 200mg Capsules three times SURG[facility] CENTER ADMINISTRATOR 08/28/2019 daily as needed for cough Budesonide Every Day Unknown 06/26/2019 - 3mg Caps Part 08/06/2019 Erythromycin apply to 3.500gm H00.015 Meri 06/25/2019 - 5mg/GM Ointment left eye [place], N.P. 07/09/2019 twice a day until clear Medications Administered in Office Medication SIG Qnty Indications Ordering Provider Date Depomedrol 40MG Torrey Tadeo M.D. 01/03/2010 Injection Depomedrol 20MG Torrey Tadeo M.D. 01/03/2010 Injection Immunizations CPT Code Status Date Vaccine Lot # [id number] Given 09/15/2009 Tdap - Tetanus/Diptheria/Acellular Pertussis Vital Signs Date Vital Result Comment 11/07/2019 3:30pm Height 63 inches 5'3" Weight 144.00 lb Heart Rate 75 /min BP Systolic 147 mmHg BP Diastolic 98 mmHg Body Temperature 96.9 F Pain Level 0 O2 % BldC Oximetry 96 % BMI (Body Mass Index) 25.5 kg/m2 10/10/2019 3:08pm Height 63 inches 5'3" Weight 155.38 lb Heart Rate 97 /min BP Systolic 133 mmHg BP Diastolic 85 mmHg Body Temperature 98.5 F O2 % BldC Oximetry 96 % BMI (Body Mass Index) 27.5 kg/m2 Results Test Acquired Date Facility Test Result H/L Range Note Laboratory test 10/17/2019 [facility] Cyclic <15.6 U [address] [place] [address] Igg [phone] Erythrocyte Sed Rate 8 mm/Hr Normal 0-29 C Reactive Protein < 1.00 mg/L Normal <8.01 Free T4 (Free Thyroxine) 0.82 ng/dL Normal 0.61-1.12 TSH (Thyroid Stim Horm) 1.44 mcIU/mL Normal 0.34-5.60 1 REFERENCE VALUE <20.0 (Negative) Test Performed by: [facility] [address] [place] [address] Railroad Car Loader: Gerry Hernandez M.D. Ph.D.; CLIA# [id number] Procedures Date Code Description Status 02/05/2019 [id number] Colonoscopy Completed 12/24/2018 [id number] Mammogram Completed 07/05/2017 [id number] Diabetic Retinal Eye Exam Completed 10/13/2016 [id number] Mammogram Completed 10/12/2015 [id number] Mammogram Completed 09/11/2014 [id number] Mammogram Completed 11/25/2010 [id number] Mammogram Completed 11/02/2006 [id number] Diabetic Foot Exam Completed Medical Devices Description No Information Available Encounters Type Date Location Provider Dx Diagnosis Office Visit 10/10/2019 Rheumatology Everton Monet, M75.50 Bursitis of 3:00p [facility] - unspecified [facility] shoulder R76.0 Raised antibody titer M25.551 Pain in right hip M25.572 Pain in left ankle and joints of left foot Office Visit 08/14/2019 3:00p [facility] Internal Yony Simpson, J01.90 Acute sinusitis, Medicine - C[facility] SURG[facility] CENTER ADMINISTRATOR unspecified J20.9 Acute bronchitis, unspecified Office Visit 06/25/2019 1:00p [facility] Internal Meri Golden, H00.015 [facility] externum left Ccmob lower eyelid I10 Essential (primary) hypertension Assessments Date Code Description Provider 11/07/2019 M25.512 Pain in left shoulder Everton Monet MD 11/07/2019 M25.511 Pain in right shoulder Everton Monet MD 11/07/2019 M17.9 Osteoarthritis of knee, unspecified Everton Monet MD 11/07/2019 M25.559 Pain in unspecified hip Everton Monet MD 10/10/2019 M75.50 Bursitis of unspecified shoulder Everton Monet MD 10/10/2019 R76.0 Raised antibody titer Everton Monet MD 10/10/2019 M25.551 Pain in right hip Everton Monet MD 10/10/2019 M25.572 Pain in left ankle and joints of left foot Everton Monet MD 08/14/2019 J01.90 Acute sinusitis, unspecified Yony Tatiana, SURGERY CENTER ADMINISTRATOR 08/14/2019 J20.9 Acute bronchitis, unspecified Yony Tatiana, SURGERY CENTER ADMINISTRATOR 06/25/2019 H00.015 [facility] externum left lower eyelid Meri Golden N.PMary Kay 06/25/2019 I10 Essential (primary) hypertension Meri Golden N.Wali. Plan of Treatment Future Appointment(s):02/06/2020 3:00 pm - Everton Monet MD at [facility]11/28/2019 1:00 pm - Meri Golden N.PMary Kay at [facility] Medicine - [facility]11/07/2019 - Everton Monet, MDM25.512 Pain in left shoulderNew Therapy:Physical TherapyFollow up:3 vgthlqM24.511 Pain in right atesftyqW41.9 Osteoarthritis of knee, iwmhbjxczudQ27.559 Pain in unspecified hip Functional Status Description No Information Available Mental Status Description No Information Available Referrals Description No Information Available
--- OUTSIDE RECORDS SUMMARY | 2019-12-28 18:59 | XMS REPORT | Continuity of Care Document ---
:1955 External Reference #:[id number] Author Name Meri Golden N.P. (transmitted by agent of provider Dorcas Jackson) Address [address], [place] [address] Care Team Providers Name Role Phone Meri Golden NP - Family Care Team Information Med Surg Nurse [phone] Nelsy Pérez MD - Internal Medicine Care Team Information Med Surg Nurse [phone] Problems Active Problems Provider Date Essential hypertension Meri Golden N.P. Onset: 09/03/2015 Anxiety state Nelsy Pérez M.D., FACP Onset: 09/28/2010 Depressive disorder Nelsy Pérez M.D., FACP Onset: 09/28/2010 Chronic fatigue syndrome Nelsy Pérez M.D., FACWali Onset: 09/28/2010 Temporomandibular joint disorder Nelsy Pérez M.D., FACP Onset: 10/12/2010 Gastroesophageal reflux disease Meri Golden N.P. Onset: 06/24/2012 Obstructive sleep apnea of adult Lee Ann Weeks DNP, RN, Onset: 10/16/2014 [facility] Abnormal results function studies of Jazmine Abreu MD Onset: 11/17/2015 central nervous system Postconcussion syndrome Jazmine Abreu MD Onset: 11/28/2016 Headache Jazmine Abreu MD Onset: 09/25/2017 Collagenous colitis Conrad Ponce.Barbara Onset: 02/06/2019 Dizziness and giddiness Rajat Rojas M.D. Onset: 02/21/2019 Social History Type Date Description Comments Sex Unknown ETOH Use Currently consumes 3 beers per day alcohol Tobacco Use Start: Unknown Patient is a current 2 - 3 cigarettes per smoker, smokes every day day Recreational Drug Use Current Drug User Smokes marijuana 3 - 4 times weekly Smoking Status Reviewed: 11/28/19 Patient is a current 2 - 3 cigarettes per smoker, smokes every day day Exercise Type/Frequency Does not exercise Allergies, Adverse Reactions, Alerts Active Allergies Reaction Severity Comments Date No Known Drug Allergy 07/07/2010 Medications Active Medications SIG Qnty Indications Ordering Date Provider Bupropion Hydrochloride ER Take One 30tabs Meri Golden, 06/02/2019 (XL) Tablet By N.P. 300mg Tablets ER 24HR Mouth Once Daily Fluoxetine HCL Take One 30tabs F33.9 Meri Varconrad, 03/11/2018 60mg Tablets Tablet By N.P. Mouth Once Daily Nasonex instill [address] [facility] 01/10/2016 50mcg/Act Suspension spray into Cotton, M.D. each nostril once daily as needed Flovent HFA 2 puffs twice 12gm J45.30 Yony Simpson NP 01/10/2016 110mcg/Act Aerosol daily as needed Proair HFA inhale [address] 995.3 [facility] 03/30/2015 108(90Base) mcg/Act by mouth every Cotton, M.D. Aerosol 4 hours as needed Alprazolam dissolve 1 30tabs F32.9 Yony Simpson NP 04/08/2014 0.25mg Tablets Dispers tablet on tongue upto 3 times a day as needed for anxiety max of 3 per day Hydrochlorothiazide take one 90tabs Meri Golden, 04/11/2013 25mg Tablets tablet by N.P. mouth once daily Omeprazole take two 90caps Meri Golden, 06/15/[address] capsules by N.P. mouth once daily History Medications Prednisone take 3 tabs by 60tabs M75.50 [place] 10/10/2019 - 5mg Tablets mouth daily for MD Chiki 11/09/2019 3 days, take 2 tabs by mouth daily for 2 weeks, take 1 tab by mouth daily for 2 weeks Hydroxychloroquine take one tab by 180tabs M75.50 [place] 10/10/2019 - Sulfate mouth daily for MD Chiki 11/27/2019 200mg Tablets one week, then increase to one tab twice daily thereafter Amoxicillin/Clavulanate take one tablet 20tabs J01.90 Yony Simpson, ELIZABETH 08/14 - Potassium q12 hours for 10 08/28/2019 875-125mg Tablets days Benzonatate one by mouth 30caps J20.9 Yony Simpson NP 08/14/2019 - 200mg Capsules three times 08/28/2019 daily as needed for cough Budesonide Every Day Unknown 06/26/2019 - 3mg Caps DR Granados 08/06/2019 Erythromycin apply to left 3.500gm H00.015 Meri Golden, 06/25/2019 - 5mg/GM Ointment eye twice a day N.P. 07/09/2019 until clear Medications Administered in Office Medication SIG Qnty Indications Ordering Provider Date Depomedrol 40MG Torrey Tadeo M.D. 01/03/2010 Injection Depomedrol 20MG Torrey Tadeo M.D. 01/03/2010 Injection Immunizations CPT Code Status Date Vaccine Lot # [id number] Given 09/15/2009 Tdap - Tetanus/Diptheria/Acellular Pertussis Vital Signs Date Vital Result Comment 11/28/2019 1:15pm Height 63 inches 5'3" Weight 158.00 lb Heart Rate 69 /min BP Systolic Sitting 150 mmHg BP Diastolic Sitting 92 mmHg Body Temperature 97.6 F O2 % BldC Oximetry 98 % BMI (Body Mass Index) 28.0 kg/m2 11/07/2019 3:30pm Height 63 inches 5'3" Weight 144.00 lb Heart Rate 75 /min BP Systolic 147 mmHg BP Diastolic 98 mmHg Body Temperature 96.9 F Pain Level 0 O2 % BldC Oximetry 96 % BMI (Body Mass Index) 25.5 kg/m2 Results Test Acquired Date Facility Test Result H/L Range Note Laboratory test 10/17/2019 [facility] Cyclic <15.6 U [address] [place] [address] Igg [phone] Erythrocyte Sed Rate 8 mm/Hr Normal 0-29 C Reactive Protein < 1.00 mg/L Normal <8.01 Free T4 (Free Thyroxine) 0.82 ng/dL Normal 0.61-1.12 TSH (Thyroid Stim Horm) 1.44 mcIU/mL Normal 0.34-5.60 1 REFERENCE VALUE <20.0 (Negative) Test Performed by: [facility] [address] [place] [address] [employer]ker: Gerry Hernandez M.D. Ph.D.; CLIA# [id number] Procedures Date Code Description Status 02/05/2019 [id number] Colonoscopy Completed 12/24/2018 [id number] Mammogram Completed 07/05/2017 [id number] Diabetic Retinal Eye Exam Completed 10/13/2016 [id number] Mammogram Completed 10/12/2015 [id number] Mammogram Completed 09/11/2014 [id number] Mammogram Completed 11/25/2010 [id number] Mammogram Completed 11/02/2006 [id number] Diabetic Foot Exam Completed Medical Devices Description No Information Available Encounters Type Date Location Provider Dx Diagnosis Office Visit 11/07/2019 Rheumatology [place] Monet, M25.512 Pain in left 3:30p Services Of Denise Sandoval MD shoulder [facility] M25.511 Pain in right shoulder M17.9 Osteoarthritis of knee, unspecified M25.559 Pain in unspecified hip Office Visit 10/10/2019 3:00p Rheumatology [place] M75.50 Bursitis of Services Of Denise Monet MD unspecified [facility] shoulder R76.0 Raised antibody titer M25.551 Pain in right hip M25.572 Pain in left ankle and joints of left foot Office Visit 08/14/2019 3:00p [facility] Internal Yony Simpson, J01.90 Acute sinusitis, Medicine - [facility] [employer]ER unspecified J20.9 Acute bronchitis, unspecified Office Visit 06/25/2019 1:00p [facility] Internal Meri Golden, H00.015 [facility] - N.P. externum left [facility] lower eyelid I10 Essential (primary) hypertension Assessments Date Code Description Provider 11/28/2019 Z00.00 Encounter for general adult medical Meri Golden, N.P. examination without abnormal findings 11/28/2019 Z12.31 Encounter for screening mammogram for Meri Golden N.PMary Kay malignant neoplasm of breast 11/28/2019 I10 Essential (primary) hypertension Meri Golden, N.P. 11/28/2019 K21.9 Gastro-esophageal reflux disease without Meri Varn, N.P. esophagitis 11/28/2019 F17.210 Nicotine dependence, cigarettes, uncomplicated Meri Varn, N.P. 11/28/2019 F41.1 Generalized anxiety disorder Meri Varn, N.P. 11/28/2019 J30.9 Allergic rhinitis, unspecified Meri Varn, N.P. 11/28/2019 F07.81 Postconcussional syndrome Meri Varn, N.P. 11/28/2019 G31.84 Mild cognitive impairment, so stated Meri Varn, N.P. 11/28/2019 G89.4 Chronic pain syndrome Meri Varn, N.P. 11/28/2019 H92.02 Otalgia, left ear Meir Varn, N.P. 11/28/2019 G47.33 Obstructive sleep apnea (adult) (pediatric) Meri Hookern , N.P. 11/07/2019 M25.512 Pain in left shoulder [place] [...] 08/14/2019 J01.90 Acute sinusitis, unspecified Yony Tatiana, ELIZABETH 08/14/2019 J20.9 Acute bronchitis, unspecified Yony Tatiana, [employer] LEADER 06/25/2019 H00.015 [facility] externum left lower eyelid Meri Golden, N.P. 06/25/2019 I10 Essential (primary) hypertension Meri Golden, N.P. Plan of Treatment Future Appointment(s):12/21/2020 1:00 pm - Meri Golden N.P. at [facility] Internal Medicine - [facility]06/09/2020 11:20 am - Meri Golden N.P. at [facility] Internal Medicine - [facility]02/06/2020 3:00 pm - [place] [facility] Meri Golden N.P.Z00.00 Encounter for general adult medical examination without abnormal findingsComments:For your routine health maintenance: I encourage you to continue with regular exercise and healthy nutrition. You need to be getting between 1,000 - 1,200 mg of Calcium in daily. The best way to supplement what you get in your diet is to drink Calcium fortified orange juice. If you take a Calcium supplement be sure it has Vitamin D in it to help absorption. Your Tetanus immunization is up to date. You received this in August 2019. It is good for 10 years unless you have a major injury, then it is good for 5 years. Your colonoscopy is up to date. You had this in 2018. You will need this repeated in 2028. There is a new shingles vaccine available, Shingrix. This is a series of 2 injections given 2 - 6 months apart. This is available at the pharmacy and I urge you to get this. You had a pap smearin 2018. It was normal and your screening for HPV was negative. You will need a repeat pap smear in 2023.Z12.31 Encounter for screening mammogram for malignant neoplasm of breastComments:I have ordered your routine screening mammogram. The imaging department will give you your results at the time of your visit. I encourage you to do self exams. If you should notice any masses or thickening, please give the office a call.I10 Essential (primary) hypertensionComments:For your high blood pressure: You need to get back on your medication.I would like you to monitor your blood pressure at home. If your readings at home are consistently higher than 140/90, please callthe office.Follow up:HTN f/u 6 mo Physical in 1 yearK21.9 Gastro- esophageal reflux disease without esophagitisComments:For your esophageal reflux : Continue with your current management. I advise you to avoid food triggers. These include: Spicy, greasy, and acidic foods, along with coffee and alcohol. If at any point you feel your symptoms are not well controlled, please contact the office.F17.210 Nicotine dependence, cigarettes, uncomplicatedComments:It is imperative that you quit smoking. I urge you to continue your efforts to quit smoking.F41.1 Generalized anxiety disorderComments:For your anxiety:Continue your current medication management. I want you to pursue your counseling. I urge you to continue to talk to her about doing some cognitive therapy.Referral: Summer Chong, SATYA, Psych/Mental Health/NPJ30.9 Allergic rhinitis, unspecifiedComments:For your allergies: Continue with your current management. If you should feel your symptoms are not being well controlled, please give the office a call.F07.81 Postconcussional syndromeReferral:[facility] , Clinic/FovntpI38.84 Mild cognitive impairment, so zkozfqD78.4 Chronic pain syndromeComments:For your chronic pain I have referred you to Dr Elizondo at the pain clinic to be evaluated for medical marijuana.Referral:Stanley Elizondo MD, Pain/Clinic/CTRH92.02 Otalgia, left earComments:I believe the sensation you are having in your left ear is related to your eustachian tube. You willbenefit from using Nasonex, 2 inhalations in each nostril daily. If this doesn't not gradually improve, please contact the office.G47.33 Obstructive sleep apnea (adult) (pediatric)Comments:I have referred you to the sleep clinic to be re evaluated for your CPAP machineReferral:[facility] Sleep Clinic, Sleep Disord, Diag/Clinic Functional Status Description No Information Available Mental Status Description No Information Available Referrals Refer to Reason for Referral Status Appt Date Stanley Elizondo MD Patient with multiple joint pain related to Created structural issues referred for pain management, possible medical marijuana. Thank you for seeing this pleasant patient. [address] [address] [phone] [facility] Sleep Clinic Patient with known sleep apnea, needs sleep study Created for her CPAP. [address] [address] [phone] [facility] Patient has had several concussions. Created Continues to have cognitive issues, referred for evaluation and treatment. Thank you for seeing this pleasant patient. [address] [place] [id number] [phone] Summer Chong NPP Patient with anxiety and depression not clearly Created well managed on Bupropion and Fluoxetine. I am also concerned she may be bipolar and have ADD and may need medication changes. Thank you for seeing this interesting patient[place] [address] [phone]
[2019-12-28 19:01] LABS: INR 1.03 (0.82-1.09)
--- NOTE | 2019-12-28 19:02 | ED ---
HPI Chest Pain - HPI Summary HPI Summary: Patient is a 64 y/o F arriving via ambulance to [facility] accompanied by family with a cc of sudden onset chest tightness about an hour ago that quickly resolved. She reports that she had woke up yesterday and not felt well with a sore throat, headache, and sinus congestion, causing her to sleep all day. She continued to feel slightly fatigued today but improved compared to yesterday. She had gotten up to let her dogs out, and then she lied back down on her couch and suddenly became diaphoretic and nauseous with chest tightness lasting for about a minute before resolving spontaneously. She then felt anxious prior to calling EMS. Symptoms currently rated 0/10 in severity. She denies any loss of appetite today. She notes that she has experienced these symptoms before with the last episode about a year ago with cardiac workup at [facility], although she is unsure of the etiology to which she had been experiencing the pain. PMHx: angina , HTN, sleep apnea, GERD, arthritis, headaches, anxiety, depression, panic disorder. Current light smoker, daily EtOH, marijuana use. Medications reviewed. Allergies noted. - History of Current Complaint Chief Complaint: EDChestPainROMI Time Seen by Provider: 12/28/19 18:39 Hx Obtained From: Patient Hx Last Menstrual Period: post Onset/Duration: Resolved Time of Onset: 17:30 Timing: Lasting Seconds Initial Severity: Moderate Current Severity: None Pain Intensity: 0 Pain Scale Used: 0-10 Numeric Chest Pain Location: Diffuse Chest Pain Radiates: No Character: Tightness Aggravating Factor(s): Nothing Alleviating Factor(s): Spontaneous Resolution Associated Signs and Symptoms: Positive: Chest Pain, Anxiety, Diaphoresis, Nausea, Sinus Discomfrot Related History: Similar Episode/Dx as: - a year ago - Allergy/Home Medications Allergies/Adverse Reactions: Allergies Allergy/AdvReac Type Severity Reaction Status Date / Time No Known Allergies Allergy Verified 06/26/19 19:27 Home Medications: Home Medications Hydrochlorothiazide TAB* [Hydrodiuril TAB*] 25 mg PO DAILY 10/29/12 [History Confirmed 12/28/19] BuPROPion XL* [Bupropion XL*] 300 mg PO DAILY 02/01/18 [History Confirmed ] ALPRAZolam [Alprazolam Odt] 0.25 mg PO TID PRN 01/31/19 [History Confirmed 12/27] Albuterol inh POWDER (NF) [Proair Respiclick] 2 puff INH Q4HR PRN 01/31/19 [ History Confirmed 12/28/19] Fluoxetine HCl 60 mg PO DAILY 01/31/19 [History Confirmed 12/28/19] Fluticasone HFA 110 mcg(NF) [Flovent HFA 110 mcg(NF)] 2 puff INH BID PRN [History Confirmed 12/28/19] Mometasone NASAL (NF) [Nasonex (NF)] 1 spray BOTH NARES DAILY PRN 01/31/19 [ History Confirmed 12/28/19] Omeprazole CAP (NF) [Prilosec CAP* 20 MG] 20 mg PO DAILY 04/03/19 [History Confirmed 12/28/19] PMH/Surg Hx/FS Hx/Imm Hx Endocrine/Hematology History: Denies: Hx Diabetes, Hx Thyroid Disease Cardiovascular History: Reports: Hx Angina, Hx Hypertension Denies: Hx Myocardial Infarction, Hx Pacemaker/ICD, Hx Peripheral Vascular Disease Respiratory History: Reports: Hx Sleep Apnea Denies: Hx Asthma, Hx Chronic Obstructive Pulmonary Disease (COPD) GI History: Reports: Hx Gastroesophageal Reflux Disease - omeprazole very rare, Hx Irritable Bowel - comes and goes Denies: Hx Ulcer History: Denies: Hx Renal Disease Musculoskeletal History: Reports: Hx Arthritis Sensory History: Reports: Hx Contacts or Glasses - glasses Denies: Hx Cataracts, Hx Glaucoma, Hx Hearing Aid Opthamlomology History: Reports: Hx Contacts or Glasses - glasses Denies: Hx Cataracts, Hx Glaucoma Neurological History: Reports: Hx Headaches Denies: Hx Seizures, Hx Transient Ischemic Attacks (TIA) Psychiatric History: Reports: Hx Anxiety, Hx Depression, Hx Panic Disorder - ATTACKS-WILL MEDICATE Denies: Hx Eating Disorder, Hx of Violent Episodes Against Others - Cancer History Cancer Type, Location and Year: SKIN Hx Chemotherapy: No Hx Radiation Therapy: No - Surgical History Surgical History: Yes Surgery Procedure, Year, and Place: RIGHT HIP REPLACEMENT 2012, 2 C-SECTIONS 1997, 2000, MULTIPLE SURGERIES FOR INFERTILITY, WISDOM TEETH EXTRACTION, CYSTS REMOVED FROM BEHIND EARS-. 01/26/2016 LEFT HIP REPLACEMENTS, hysteroscopy, laparoscopy Hx Anesthesia Reactions: No Infectious Disease History: No Infectious Disease History: Reports: Hx Shingles Denies: Hx Clostridium Difficile, Hx Hepatitis, Hx Human Immunodeficiency Virus (HIV), Hx of Known/Suspected MRSA, Hx Tuberculosis, Hx Known/Suspected VRE , Hx Known/Suspected VRSA, History Other Infectious Disease, Traveled Outside the [place] in Last 30 Days - Family History Known Family History: Positive: Other - parent living, father has hearing loss Negative: Cardiac Disease Family History: Father: skin CA. grandfather: stroke - Social History Alcohol Use: Daily Alcohol Amount: 2 DRINKS/DAY Hx Substance Use: Yes Substance Use Type: Reports: Marijuana Substance Use Comment - Amount & Last Used: occassionally Hx Tobacco Use: Yes Smoking Status (MU): Light Every Day Tobacco Smoker Type: Cigarettes Amount Used/How Often: 5-6 CIG/DAY Length of Time of Smoking/Using Tobacco: 40+ years Review of Systems Positive: Skin Diaphoresis Positive: Sore Throat Positive: Chest Pain - tightness Positive: Other - sinus congestion Positive: Nausea. Negative: Other - loss of appetite Positive: Headache Positive: Anxious All Other Systems Reviewed And Are Negative: Yes Physical Exam - Summary Physical Exam Summary: Constitutional: Well-developed, Well-nourished, Alert. (-) Distressed Skin: Warm, Dry HENT: Normocephalic; Atraumatic Eyes: Conjunctiva normal Neck: Musculoskeletal ROM normal neck. (-) JVD, (-) Stridor, (-) Nuchal rigidity Cardio: Rhythm regular, rate normal, Heart sounds normal; Intact distal pulses; Radial pulses are 2+ and symmetric. (-) Murmur Pulmonary/Chest wall: Effort normal. (-) Respiratory distress, (-) Wheezes, (-) Rales Abd: Soft, (-) tenderness, (-) Distension, (-) Guarding, (-) Rebound Musculoskeletal: (-) Edema Lymph: (-) Cervical adenopathy Neuro: Alert, Oriented x3 Psych: Anxious Triage Information Reviewed: Yes Vital Signs On Initial Exam: Initial Vitals Temp Pulse Resp BP Pulse Ox 98 F 78 18 139/94 97 12/28/19 18:43 12/28/19 18:43 12/28/19 18:43 12/28/19 18:43 12/28/19 18:43 Vital Signs Reviewed: Yes Procedures - Sedation Patient Received Moderate/Deep Sedation with Procedure: No Diagnostics - Vital Signs Vital Signs Temp Pulse Resp BP Pulse Ox 12/28/19 18:43 98 F 78 18 139/94 97 - Laboratory Result Diagrams: 12/28/19 18:46 12/28/19 18:46 Lab Statement: Any lab studies that have been ordered have been reviewed, and results considered in the medical decision making process. - EKG 184 Cardiac Rate: NL - 72 BPM EKG Rhythm: Sinus Rhythm Summary of EKG Findings: An EKG at 184 reveals normal sinus rhythm at rate if 72 BPM, prolonged QTc at 535. No STEMI. ED physician has reviewed and interpreted this EKG. 2141 Cardiac Rate: NL - 83 BPM EKG Rhythm: Sinus Rhythm EKG Comparison: Other - QTc improved Summary of EKG Findings: An EKG at 2141 reveals normal sinus rhythm at 83 BPM, QTc at 465, T wave flattening in III. No STEMI. ED physician has reviewed and interpreted this EKG. Re-Evaluation - Re-Evaluation First Eval Re-Evaluation Time: 21:40 Comment: Discussed results and plan for d/c, patient agreeable Chest Pain Course/Dx - Course Course Of Treatment: 64 y/o F w hx panic attacks, HTN, p/w CP. -Patient admitted March 2019 for similar. Had EKG and trop negative x2. TTE showed normal EF and no sig wall motion abnormality. Nuclear med test and stress test WNL ( saw Dr. Wahl). Thought symptoms 2/2 anxiety and psychosocial stress. -EKG here unchanged from prior in 2019 except prolonged qTC. Trop negative x1. Suspect symptoms again related to anxiety. Patient had thorough cardiac w/u w similar presentation last year. Do not think she would benefit from additional workup. Chest Pain DDX: The patient is well appearing, with stable vitals. Given the patient's clinical presentation, highest on differential is atypical CP. also consider: ACS: The initial EKG shows no ischemic changes. The initial troponin is not elevated. - Diagnoses Provider Diagnoses: Chest tightness, Anxiety Discharge ED - Sign-Out/Discharge Documenting (check all that apply): Patient Departure - Patient will be discharged home. - Discharge Plan Condition: Stable Disposition: HOME Patient Education Materials: Chest Pain (ED) Referrals: Salud Sapp MD [Primary Care Provider] - 3 Days Additional Instructions: You were seen in the emergency department for chest pain. Your EKG (heart tracing), labs did not show any cause for pain. Important that you follow up with you primary care doctor in the next 1-2 days. Please return to the emergency department for continued chest pain, trouble breathing, passing out, or if you're concerned. . - Billing Disposition and Condition Condition: STABLE Disposition: Home - Attestation Statements Document Initiated by Tarun: Yes Documenting Scribe: Hetal Kinney Provider For Whom Tarun is Documenting (Include Credential): Dr. Yvette Espitia MD Scribe Attestation: IHetal, scribed for Dr. Yvette Espitia MD on 12/28/19 at 2231. Scribe Documentation Reviewed: Yes Provider Attestation: The documentation as recorded by the Hetal ellis accurately reflects the service I personally performed and the decisions made by me, Dr. Yvette Espitia MD Status of Scribe Document: Viewed
[2019-12-28 19:14] LABS: Albumin 4.5 g/dL (3.2-5.2); Albumin/Globulin Ratio 1.8 (1-3); BUN/Creatinine Ratio 12.9 (8-20); Calcium 9.8 mg/dL (8.6-10.3); EGFR Non-African American 67.8 (>60); Globulin 2.5 g/dL (2-4); Magnesium 1.9 mg/dL (1.9-2.7); Total Bilirubin 0.4 mg/dL (0.2-1.0)
[2019-12-28] MEDS ORDERED: Potassium Chlor TAB* 20 MEQ TAB.ER PO ONE (19:16)
[2019-12-28 22:00] VITALS: BP 123/78
== END 2019-12-28 22:00 | disposition home or self-care (01) ==
LOC: ED 18:37
DX: R07.89 Other chest pain (principal); F41.9 Anxiety disorder, unspecified; R61 Generalized hyperhidrosis; R11.0 Nausea; R09.81 Nasal congestion; J02.9 Acute pharyngitis, unspecified; I10 Essential (primary) hypertension; K21.9 Gastro-esophageal reflux disease without esophagitis; F32.9 Major depressive disorder, single episode, unspecified; Z79.899 Other long term (current) drug therapy; Z96.642 Presence of left artificial hip joint; F17.210 Nicotine dependence, cigarettes, uncomplicated
CPT/HCPCS: 36415; 80053; 83735; 84484; 85025; 85610; 93005; 99285; A9270-GY